=== PATIENT | female | born 1985 | race American Indian/Alaskan Native ===

== ENCOUNTER 2019-02-23 07:12 | Emergency (ER) | payer OTHER ==
[2019-02-23] MEDS ORDERED: NACL 0.9% 1000 ML 1,000 ML IV ONE ×3 (07:38→12:02)
[2019-02-23] MEDS ORDERED: MORPHINE IV ONE (07:38)
[2019-02-23] MEDS ORDERED: ZOFRAN IV ONE ×2 (07:38→10:55)
[2019-02-23 07:52] LABS: Bacteria,Urine 1+ /HPF (Negative); Bilirubin,Urine NEG (Negative); Blood,Urine LG (Negative); Color,Urine Yellow (Yellow); Mucus,Urine FEW /HPF; Urobilinogen,Urine < 2.0 mg/dL (<2.0)
[2019-02-23 07:58] LABS: Protein,Urine >500 mg/dL (Negative)
--- NOTE | 2019-02-23 08:17 | Emergency Department Report ---
ED Abdominal Pain HPI - General Chief Complaint: Abdominal Pain Stated Complaint: VOMITING Time Seen by Provider: 02/23/19 07:37 Source: patient Mode of arrival: Ambulatory Limitations: No Limitations - History of Present Illness Initial Comments: This is a 33-year-old female nontoxic, well nourished in appearance, no acute signs of distress presents to the ED with c/o of nausea and vomiting and abdominal pain 1 day. Patient describes vomiting as food content and yellow gastric acid. Patient describes abdominal pain as cramping and aching with l evel of 3/10 diffuse. Patient denies chest pain, short of breath, fever, chills, headache, stiff neck, numbness or tingling. Patient denies any diarrhea or constipation. Patient denies any recent travels. Patient denies any allergies or PMH. MD Complaint: abdominal pain -: days(s) Location: diffuse Radiation: none Migration to: no migration Severity: mild Severity scale (0 -10): 3 Quality: cramping, aching Consistency: constant Improves With: nothing Worsens With: nothing Associated Symptoms: nausea, vomiting. denies: diarrhea, fever, chills, constipation, dysuria, hematemesis, hematochezia, melena, hematuria, anorexia, syncope - Related Data Previous Rx's Medication Instructions Recorded Last Taken Type Ibuprofen [Motrin] 600 mg PO Q8H PRN #20 tablet 02/23/19 Unknown Rx Ondansetron [Zofran Odt] 4 mg PO Q8HR PRN #20 tab.rapdis 02/23/19 Unknown Rx Allergies Allergy/AdvReac Type Severity Reaction Status Date / Time No Known Allergies Allergy Unverified 02/23/19 07:15 ED Review of Systems ROS: Stated complaint: VOMITING Other details as noted in HPI Constitutional: denies: chills, fever Eyes: denies: eye pain, eye discharge, vision change ENT: denies: ear pain, throat pain Respiratory: denies: cough, shortness of breath, wheezing Cardiovascular: denies: chest pain, palpitations Endocrine: no symptoms reported Gastrointestinal: abdominal pain, nausea, vomiting. denies: diarrhea Genitourinary: denies: urgency, dysuria, discharge Musculoskeletal: denies: back pain, joint swelling, arthralgia Skin: denies: rash, lesions Neurological: denies: headache, weakness, paresthesias Psychiatric: denies: anxiety, depression Hematological/Lymphatic: denies: easy bleeding, easy bruising ED Past Medical Hx - Past Medical History Previous Medical History?: No - Surgical History Past Surgical History?: No - Social History Smoking Status: Never Smoker - Medications Home Medications: Home Medications Medication Instructions Recorded Confirmed Last Taken Type Ibuprofen [Motrin] 600 mg PO Q8H PRN #20 tablet 02/23/19 Unknown Rx Ondansetron [Zofran Odt] 4 mg PO Q8HR PRN #20 tab.rapdis 02/23/19 Unknown Rx ED Physical Exam - General Limitations: No Limitations General appearance: alert, in no apparent distress - Head Head exam: Present: atraumatic, normocephalic - Neck Neck exam: Present: normal inspection, full ROM. Absent: tenderness, meningismus, lymphadenopathy - Respiratory Respiratory exam: Present: normal lung sounds bilaterally. Absent: respiratory distress, wheezes, rales, rhonchi, stridor, chest wall tenderness, accessory muscle use, decreased breath sounds, prolonged expiratory - Cardiovascular Cardiovascular Exam: Present: regular rate, normal rhythm, tachycardia, normal heart sounds. Absent: bradycardia, systolic murmur, diastolic murmur, rubs, gallop - GI/Abdominal GI/Abdominal exam: Present: soft, tenderness (diffuse), normal bowel sounds. Absent: distended, guarding, rebound, rigid, diminished bowel sounds - Expanded GI/Abdominal Exam Expanded GI/Abdominal exam: Absent: psoas sign, Tamayo's sign, Rovsing's sign, tenderness at Mcburney's Point, ascites - Extremities Exam Extremities exam: Present: normal inspection, full ROM - Back Exam Back exam: Present: normal inspection, full ROM. Absent: tenderness, CVA tenderness (R), CVA tenderness (L), muscle spasm, paraspinal tenderness, vertebral tenderness, rash noted - Neurological Exam Neurological exam: Present: alert, oriented X3, normal gait - Psychiatric Psychiatric exam: Present: normal affect, normal mood - Skin Skin exam: Present: warm, dry, intact, normal color. Absent: rash ED Course Vital Signs 02/23/19 02/23/19 02/23/19 07:16 08:04 08:31 Temperature 98.3 F Pulse Rate 110 H Respiratory 16 18 18 Rate Blood Pressure Blood Pressure 154/105 [Right] O2 Sat by Pulse 100 98 Oximetry 02/23/19 02/23/19 02/23/19 08:34 11:37 11:42 Temperature 98.2 F Pulse Rate 103 H Respiratory 18 12 Rate Blood Pressure 148/91 Blood Pressure [Right] O2 Sat by Pulse 100 Oximetry 02/23/19 14:34 Temperature 98.4 F Pulse Rate 93 H Respiratory 16 Rate Blood Pressure Blood Pressure 149/96 [Right] O2 Sat by Pulse 100 Oximetry - Reevaluation(s) Reevaluation #1: 02/23/19 08:17 Patient is speaking in full sentences with no signs of distress noted. Reevaluation #2: 02/23/19 10:59 Patient is resting comfortably but still vomiting. I will give 4 mg of Zofran. Vital signs are stable currently. Reevaluation #3: 02/23/19 14:03 Patient's is currently at the bedside and has opened up to me that patient has been consuming alcohol on a daily basis. Last alcohol consumption was yesterday. I will start an IV banana bag in Will reevaluate patient. Reevaluation #4: 02/23/19 15:01 A by mouth challenge has been done with apple juice 3 with no nausea vomiting. Patient stated that symptoms of pain and nausea vomiting has currently subsided. - Consultations Consultation #1: 02/23/19 09:46 Patient has been consulted with Beth De La Cruz about patient history, physical exam, and labs and agrees to the ED plan of care. ED Medical Decision Making - Lab Data Result diagrams: 02/23/19 07:46 02/23/19 12:58 - Medical Decision Making This is a 33-year-old female that presents with abdominal pain and n/v. Patient is stable and was examined by me. Patient was consulted with Beth De La Cruz about patient history, results and agrees to discharge instructions wioth follow-up. Patient was given education on alcohol affecting liver and was instructed to get medical help as this does affect her liver. Negative signs of symptoms of appendicitis. Labs obtained. UA obtained. CT of abdomen obtained and dictated by the radiologist. Patient is notified of the report with no questions noted by the patient. Vital signs are stable prior to discharge. Patient received medical treatment in the ED which patient stated symptoms has resovled and subsided. Was instructed note to operate any machinery due to possible drowsiness and stated someone will drive the patient home. A by mouth challenge has been obtained and patient tolerated well with no nausea vomiting. Patient was also instructed to Follow-up with a primary care doctor in 3-5 days or if symptoms worsen and continue return to emergency room as soon as possible. At time of discharge, the patient does not seem toxic or ill in appearance. No acute signs of distress noted. Patient agrees to discharge treatment plan of care. No further questions noted by the patient. Critical care attestation.: If time is entered above; I have spent that time in minutes in the direct care of this critically ill patient, excluding procedure time. ED Disposition Clinical Impression: Nausea & vomiting Qualifiers: Vomiting type: unspecified Vomiting Intractability: non-intractable Qualified Code(s): R11.2 - Nausea with vomiting, unspecified Abdominal pain Qualifiers: Abdominal location: generalized Qualified Code(s): R10.84 - Generalized abdominal pain Disposition: TO HOME OR SELFCARE Is pt being admited?: No Does the pt Need Aspirin: No Condition: Stable Instructions: Abdominal Pain (ED), Acute Nausea and Vomiting (ED) Additional Instructions: Follow-up with a primary care doctor in 3-5 days or if symptoms worsen and continue return to emergency room as soon as possible. Prescriptions: Ibuprofen [Motrin] 600 mg PO Q8H PRN #20 tablet PRN Reason: Pain Ondansetron [Zofran Odt] 4 mg PO Q8HR PRN #20 tab.rapdis PRN Reason: Nausea Referrals: EDIL SANDS MD [Primary Care Provider] - 3-5 Days EVA BEYER MD [Referring] - 3-5 Days ASIYA CONCEPCION MD [Staff Physician] - 3-5 Days [facility] [place]] - 3-5 Days [facility] [Outside] - 3-5 Days Forms: Work/School Release Form(ED)
[2019-02-23 08:59] LABS: Basophils # (Auto) 0.1 K/mm3 (0.0-0.1); Basophils % (Auto) 1.5 % (0.0-1.8); Eosinophils % (Auto) 0.4 % (0.0-4.3); Hematocrit 41.4 % (30.3-42.9); Lymphocytes # (Auto) 1.3 K/mm3 (1.2-5.4); Lymphocytes % (Auto) 26.5 % (13.4-35.0); Mean Corpuscular HGB Conc 34 % (30-34); Mean Corpuscular Volume 94 fl (79-97); Monocytes # (Auto) 0.3 K/mm3 (0.0-0.8); Monocytes % (Auto) 6.4 % (0.0-7.3); Platelet Count 264 K/mm3 (140-440); Red Blood Count 4.39 M/mm3 (3.65-5.03); Red Cell Distribution Width 13.4 % (13.2-15.2)
[2019-02-23 09:27] LABS: Alanine Aminotransferase 67 units/L (7-56); Albumin 5.3 g/dL (3.9-5); BUN/Creatinine Ratio 13; Bilirubin,Direct 0.3 mg/dL (0-0.2); Blood Urea Nitrogen 10 mg/dL (7-17); Calcium 10.2 mg/dL (8.4-10.2); Hemolysis Index 20
--- NOTE | 2019-02-23 10:29 | Cat Scan Report ---
CT abdomen pelvis w con INDICATION / CLINICAL INFORMATION: Generalized abdominal pain. TECHNIQUE: The patient received 100 cc Omnipaque [address] scans at this location are performed using CT dose reduction for ALARA by means of automated exposure control. COMPARISON: None available. FINDINGS: ABDOMEN: The liver measures approximately 18 cm in length and demonstrates moderately severe generali zed decreased density compared to the spleen. No focal lesion is identified. The gallbladder is mildl y distended without wall thickening or gallstones. The bile ducts, pancreas, spleen, adrenal glands a nd kidneys are normal. There is generalized increase in the submucosal fat throughout the colon, more prominent in the right colon. No mucosal abnormality is seen. I see no evidence of bowel dilatation or free air. No adenopa thy is identified. The lung bases are clear. PELVIS: The distal ureters and urinary bladder are normal. The uterus and ovaries are normal in appea pilar. A normal appendix is identified and there is no evidence of diverticulitis. There is umbilical jewelry. I do not identify a hernia. No abnormal mass or fluid collection is seen. No osseous abnorm ality is identified. IMPRESSION: 1. Hepatomegaly with moderately severe diffuse fatty infiltration. 2. Prominent submucosal fat throughout the colon, more prominent in the right colon. Causes of chroni c colitis can have this appearance, however the findings are nonspecific and can be non-pathologic. 3. Mildly distended gallbladder without wall thickening or visible gallstones. Signer Name: Lc Aaron MD Signed: 02/23/2019 10:24 AM Workstation Name: [id number]
[2019-02-23] MEDS ORDERED: ZOFRAN ONE (10:58)
--- NOTE | 2019-02-23 12:26 | Ultrasound Report ---
ULTRASOUND ABDOMEN, COMPLETE INDICATION: abd pain with abnormal liver function test. COMPARISON: None available. FINDINGS: PANCREAS: No significant abnormality. ABDOMINAL AORTA: No significant abnormality. IVC: No significant abnormality.. LIVER: Moderate generalized increased echogenicity compared to the right renal cortex. No focal lesio n. GALLBLADDER: No significant abnormality. BILE DUCTS: No significant abnormality. Common bile duct measures 4 mm. KIDNEYS: Right: Small linear echogenic focus in the upper pole of the right kidney is of doubtful cli nical significance. I do not identify a renal calculus on the CT scan performed earlier today. Left: No significant abnormality SPLEEN: No significant abnormality. FREE FLUID: None. ADDITIONAL FINDINGS: None. IMPRESSION: 1. Moderate diffuse fatty infiltration of the liver. 2. No evidence of gallstones or other significant abnormality. Signer Name: Lc Aaron MD Signed: 02/23/2019 12:21 PM Workstation Name: [id number]
[2019-02-23] MEDS ORDERED: REGLAN ONE (13:32)
[2019-02-23] MEDS ORDERED: REGLAN IV ONE (13:32)
[2019-02-23 13:36] LABS: Alanine Aminotransferase 51 units/L (7-56); Albumin 4.4 g/dL (3.9-5); BUN/Creatinine Ratio 9; Blood Urea Nitrogen 6 mg/dL (7-17); Calcium 8.4 mg/dL (8.4-10.2); Hemolysis Index 0
[2019-02-23] MEDS ORDERED: K-DUR PO ONE (13:48)
[2019-02-23] MEDS ORDERED: VITAMIN B-1 100 MG, FOLVITE 1 MG, INFUVITE 10 ML in NACL 0.9% 1000 ML 1,000 ML IV ONE (14:02)
[2019-02-23 18:40] VITALS: BP 173/109
== END 2019-02-23 18:40 | disposition home or self-care (01) ==
LOC: ED 07:12
DX: R11.2 Nausea with vomiting, unspecified (principal); R10.84 Generalized abdominal pain; Z79.899 Other long term (current) drug therapy
CPT/HCPCS: 36415; 74177; 76700; 80048; 80053; 80076; 81001; 82805; 83690; 84703; 85025; 96361; 96365; 96366; 96375; 96376; 99284; J2270; J2405; J2765; J3411; J7030; Q9967

== ENCOUNTER 2021-10-05 20:56 | Emergency (ER) | payer OTHER ==
[2021-10-06 00:39] LABS: Hematocrit 36.4 % (30.3-42.9); Hemoglobin 12.5 gm/dl (10.1-14.3); Mean Corpuscular HGB Conc 34 % (30-34); Mean Corpuscular Volume 100 fl (79-97); Platelet Count 365 K/mm3 (140-440); Red Blood Count 3.63 M/mm3 (3.65-5.03); Red Cell Distribution Width 14.4 % (13.2-15.2)
[2021-10-06] MEDS ORDERED: SODIUM CHLORIDE 0.9% 1000 ML 1,000 ML IV ONE (00:39)
[2021-10-06] MEDS ORDERED: HYOSCYAMINE SUBL 0.125 MG TAB SL ONE (00:39)
[2021-10-06] MEDS ORDERED: diphenhydrAMINE 50 MG/ML VIAL IV STA (00:39)
[2021-10-06] MEDS ORDERED: ONDANSETRON 4 MG/2 ML INJ IV STA (00:39)
[2021-10-06 00:48] LABS: Alanine Aminotransferase 12 units/L (7-56); Albumin 5.3 g/dL (3.9-5); BUN/Creatinine Ratio 10; Blood Urea Nitrogen 11 mg/dL (7-17); Calcium 9.8 mg/dL (8.4-10.2); Hemolysis Index 101
--- NOTE | 2021-10-06 01:47 | Emergency Department Report ---
ED Abdominal Pain HPI - General Chief Complaint: Abdominal Pain Stated Complaint: ABDOMINAL PAIN/VOMITING Time Seen by Provider: 10/06/21 00:38 Source: patient Mode of arrival: Ambulatory Limitations: No Limitations - History of Present Illness Initial Comments: 36-year-old F [place] female that emerge department complaining of upper abdominal pain radiating throughout the rest of her abdomen that started around 3 PM today of an unknown etiology. Symptoms were associated with nausea and and vomiting but no diarrhea. Reports no hemoptysis or hematemesis hematochezia, no fever, chills, sweats. No chest pain or palpitation. MD Complaint: abdominal pain Location: diffuse Quality: aching, dull Consistency: constant Improves With: nothing Worsens With: nothing Associated Symptoms: denies other symptoms - Related Data Previous Rx's Medication Instructions Recorded Last Taken Type Ibuprofen [Motrin] 600 mg PO Q8H PRN #20 tablet 02/23/19 Unknown Rx Clarithromycin [Biaxin] 500 mg PO BID #20 tab 10/06/21 Unknown Rx Esomeprazole Magnesium [NexIUM] 40 mg PO QDAY #30 10/06/21 Unknown Rx RX: Amoxicillin [Trimox CAP] 500 mg PO Q8H #30 capsule 10/06/21 Unknown Rx RX: Ondansetron [Zofran ODT TAB] 4 mg PO Q8HR PRN #20 tab.rapdis 10/06/21 Unknown Rx Allergies Allergy/AdvReac Type Severity Reaction Status Date / Time No Known Allergies Allergy Unverified 02/23/19 07:15 ED Review of Systems ROS: Stated complaint: ABDOMINAL PAIN/VOMITING Other details as noted in HPI ED Past Medical Hx - Past Medical History Previous Medical History?: No - Surgical History Past Surgical History?: No - Social History Smoking Status: Current Every Day Smoker Substance Use Type: Marijuana - Medications Home Medications: Home Medications Medication Instructions Recorded Confirmed Last Taken Type Ibuprofen [Motrin] 600 mg PO Q8H PRN #20 tablet 02/23/19 Unknown Rx Clarithromycin [Biaxin] 500 mg PO BID #20 tab 10/06/21 Unknown Rx Esomeprazole Magnesium [NexIUM] 40 mg PO QDAY #30 10/06/21 Unknown Rx RX: Amoxicillin [Trimox CAP] 500 mg PO Q8H #30 capsule 10/06/21 Unknown Rx RX: Ondansetron [Zofran ODT TAB] 4 mg PO Q8HR PRN #20 tab.rapdis 10/06/21 Unknown Rx ED Physical Exam - General Limitations: No Limitations ED Course Vital Signs 10/05/21 10/06/21 21:25 06:26 Temperature 98.6 F Pulse Rate 128 H 88 Respiratory 18 20 Rate Blood Pressure 165/101 Blood Pressure 118/76 [Left] O2 Sat by Pulse 96 100 Oximetry ED Medical Decision Making - Lab Data Result diagrams: 10/06/21 00:13 10/06/21 00:13 - Radiology Data Radiology results: report reviewed [facility] [address] [place] [address] Cat Scan Report Signed Patient: AVIVA WILD MR#: [id number] : 1985 Acct:[id number] Age/Sex: 36 / F ADM Date: 10/05/21 Loc: ED Attending Dr: Ordering Physician: BELA BLOOM Date of Service: 10/06/21 Procedure(s): CT abdomen pelvis w con Accession Number(s): [id number] cc: BELA BLOOM CT ABDOMEN AND PELVIS WITH CONTRAST INDICATION / CLINICAL INFORMATION: abdominal pain. TECHNIQUE: Axial CT images were obtained through the abdomen and pelvis after Omnipaque 300, 100 cc IV contrast. All [address] scans at this location are performed using CT dose reduction for ALARA by means of automated exposure control. COMPARISON: 02/23/2019. FINDINGS: LOWER CHEST: No significant abnormality. LIVER: Diffuse fatty infiltration. GALLBLADDER: No significant abnormality. BILE DUCTS: No significant abnormality. PANCREAS: No significant abnormality. SPLEEN: No significant abnormality. ADRENALS: No significant abnormality. RIGHT KIDNEY / URETER: No significant abnormality. LEFT KIDNEY / URETER: No significant abnormality. STOMACH / SMALL BOWEL: The stomach is distended with fluid. More localized circumferential thickening distally. No small bowel dilatation. COLON: Prominent submucosal fat remains at the colon diffusely. APPENDIX: No significant abnormality. PERITONEUM: No free fluid. No free air. No fluid collection. LYMPH NODES: No significant adenopathy. VASCULAR STRUCTURES: No significant abnormality. URINARY BLADDER: No significant abnormality. REPRODUCTIVE ORGANS: No significant abnormality. ADDITIONAL FINDINGS: None. SKELETAL SYSTEM: No significant abnormality. IMPRESSION: 1. Diffuse fatty liver. 2. Stomach distended with fluid with circumferential thickening distally. Findings could represent peptic disease/gastritis in the appropriate clinical setting. 3. Prominent submucosal fat greatest at the right and transverse colons is s imilar to the previous exam. Signer Name: Adriano Lopez MD Signed: 10/06/2021 5:24 AM Workstation Name: [id number] Transcribed By: VICENTE Dictated By: Adriano Lopez MD Electronically Authenticated By: Adriano Lopez MD Signed Date/Time: 10/06/21523 DD/ 6 TD/TT: Print Cancel - Medical Decision Making This patient presents with abdominal pain of unclear etiology. A CT scan was performed to evaluate for potential causes of the abdominal pain, however, neither the clinical exam nor the CT has identified an emergent etiology for the abdominal pain. Specifically, given the benign exam, the laboratory studies, and unremarkable CT, I have a very low suspicion for appendicitis, ischemic bowel, bowel perforation, or any other life threatening disease. I have discussed with the patient the level of uncertainty with undifferentiated abdominal pain and clearly explained the need to follow-up as noted on the osmar valles instructions, or return to the Emergency Department immediately if the pain worsens, develops fever, persistent and uncontrollable vomiting, or for any new symptoms or concerns. Critical care attestation.: If time is entered above; I have spent that time in minutes in the direct care of this critically ill patient, excluding procedure time. ED Disposition Clinical Impression: Abdominal pain, Gastritis Disposition: HOME / SELF CARE / HOMELESS Condition: Stable Instructions: Peptic Ulcer, Gastrin Test, Abdominal Pain, Adult, CEA Test, Jeremiah ritis, Adult, Upper Endoscopy, Adult, Abdominal Pain (ED) Prescriptions: Clarithromycin [Biaxin] 500 mg PO BID #20 tab Esomeprazole Magnesium [NexIUM] 40 mg PO QDAY #30 RX: Amoxicillin [Trimox CAP] 500 mg PO Q8H #30 capsule RX: Ondansetron [Zofran ODT TAB] 4 mg PO Q8HR PRN #20 tab.rapdis PRN Reason: Nausea Referrals: EDIL SANDS MD [Primary Care Provider] - 3-5 Days
[2021-10-06 05:14] LABS: Basophils % (Manual) 0 % (0.0-1.8); Eosinophils % (Manual) 0 % (0.0-4.3); Total Cells Counted 100
[2021-10-06 05:15] LABS: Anisocytosis 1+; Platelet Estimate Consistent w Auto
--- NOTE | 2021-10-06 05:28 | Cat Scan Report ---
CT ABDOMEN AND PELVIS WITH CONTRAST INDICATION / CLINICAL INFORMATION: abdominal pain. TECHNIQUE: Axial CT images were obtained through the abdomen and pelvis after Omnipaque 300, 100 cc I V contrast. All CT scans at this location are performed using CT dose reduction for ALARA by means o f automated exposure control. COMPARISON: 02/23/2019. FINDINGS: LOWER CHEST: No significant abnormality. LIVER: Diffuse fatty infiltration. GALLBLADDER: No significant abnormality. BILE DUCTS: No significant abnormality. PANCREAS: No significant abnormality. SPLEEN: No significant abnormality. ADRENALS: No significant abnormality. RIGHT KIDNEY / URETER: No significant abnormality. LEFT KIDNEY / URETER: No significant abnormality. STOMACH / SMALL BOWEL: The stomach is distended with fluid. More localized circumferential thickening distally. No small bowel dilatation. COLON: Prominent submucosal fat remains at the colon diffusely. APPENDIX: No significant abnormality. PERITONEUM: No free fluid. No free air. No fluid collection. LYMPH NODES: No significant adenopathy. VASCULAR STRUCTURES: No significant abnormality. URINARY BLADDER: No significant abnormality. REPRODUCTIVE ORGANS: No significant abnormality. ADDITIONAL FINDINGS: None. SKELETAL SYSTEM: No significant abnormality. IMPRESSION: 1. Diffuse fatty liver. 2. Stomach distended with fluid with circumferential thickening distally. Findings could represent pe ptic disease/gastritis in the appropriate clinical setting. 3. Prominent submucosal fat greatest at the right and transverse colons is similar to the previous ex am. Signer Name: Adriano Lopez MD Signed: 10/06/2021 5:24 AM Workstation Name: [id number]
[2021-10-06] MEDS ORDERED: FAMOTIDINE 20 MG/2 ML INJ IV ONE (06:03)
[2021-10-06 06:27] VITALS: BP 118/76
== END 2021-10-06 07:09 | disposition home or self-care (01) ==
LOC: ED 20:56
DX: R10.9 Unspecified abdominal pain (principal); K29.70 Gastritis, unspecified, without bleeding; F17.200 Nicotine dependence, unspecified, uncomplicated; F12.90 Cannabis use, unspecified, uncomplicated
CPT/HCPCS: 36415; 74177; 80053; 83690; 84703; 85007; 85025; 96361; 96374; 96375; 99284; J1200; J2405; J3490; J7030; Q9967; Q0162

== ENCOUNTER 2022-04-08 19:12 | Inpatient (IN) | payer OTHER ==
[2022-04-09] MEDS ORDERED: ONDANSETRON 4 MG/2 ML INJ IV ONE (01:58)
[2022-04-09] MEDS ORDERED: SODIUM CHLORIDE 0.9% 1000 ML 1,000 ML IV ONE ×2 (01:58→03:34)
[2022-04-09] MEDS ORDERED: MORPHINE 4 MG/1 ML INJ IV ONE (02:09)
--- NOTE | 2022-04-09 02:34 | Emergency Department Report ---
<KRISTYN HORAN - Last Filed: 04/09/22 02:31> ED General Adult HPI - General Chief complaint: Weakness Stated complaint: MALAISE Time Seen by Provider: 04/09/22 01:59 Source: patient, EMS Mode of arrival: Stretcher Limitations: No Limitations - History of Present Illness Initial comments: Patient 36-year-old female with history of pancreatitis who presents for nausea vomiting abdominal pain x3 days. Last EtOH 2 days ago. Patient denies withdrawals. States this is typical pancreatitis flare. Last p.o. intake this evening. Patient denies fevers or chills. Pain is rated at 5/10. Pain is exacerbated by p.o. intake. Pain is relieved by nothing tried. Severity scale (0 -10): 7 - Related Data Previous Rx's Medication Instructions Recorded Last Taken Type Ibuprofen [Motrin] 600 mg PO Q8H PRN #20 tablet 02/23/19 Unknown Rx Amoxicillin [Trimox CAP] 500 mg PO Q8H #30 capsule 10/06/21 Unknown Rx Clarithromycin [Biaxin] 500 mg PO BID #20 tab 10/06/21 Unknown Rx Esomeprazole Magnesium [NexIUM] 40 mg PO QDAY #30 10/06/21 Unknown Rx Ondansetron [Zofran ODT TAB] 4 mg PO Q8HR PRN #20 tab.rapdis 10/06/21 Unknown Rx Allergies Allergy/AdvReac Type Severity Reaction Status Date / Time No Known Allergies Allergy Unverified 02/23/19 07:15 ED Review of Systems Constitutional: malaise. denies: chills, fever Eyes: denies: eye pain, eye discharge, vision change ENT: denies: ear pain, throat pain Respiratory: denies: cough, shortness of breath, wheezing Cardiovascular: denies: chest pain, palpitations Endocrine: no symptoms reported Gastrointestinal: abdominal pain, nausea, vomiting. denies: diarrhea, con stipation, melena Genitourinary: denies: urgency, dysuria, discharge Musculoskeletal: denies: back pain, joint swelling, arthralgia Skin: denies: rash, lesions Neurological: denies: headache, weakness, paresthesias, vertigo Psychiatric: denies: anxiety, depression Hematological/Lymphatic: denies: easy bleeding, easy bruising ED Past Medical Hx - Social History Smoking Status: Current Every Day Smoker Substance Use Type: Marijuana - Medications Home Medications: Home Medications Medication Instructions Recorded Confirmed Last Taken Type Ibuprofen [Motrin] 600 mg PO Q8H PRN #20 tablet 02/23/19 Unknown Rx Amoxicillin [Trimox CAP] 500 mg PO Q8H #30 capsule 10/06/21 Unknown Rx Clarithromycin [Biaxin] 500 mg PO BID #20 tab 10/06/21 Unknown Rx Esomeprazole Magnesium [NexIUM] 40 mg PO QDAY #30 10/06/21 Unknown Rx Ondansetron [Zofran ODT TAB] 4 mg PO Q8HR PRN #20 tab.rapdis 10/06/21 Unknown Rx ED Physical Exam - General Limitations: No Limitations General appearance: alert, in no apparent distress - Head Head exam: Present: normocephalic, normal inspection - Eye Eye exam: Present: normal appearance, PERRL, EOMI Pupils: Present: normal accommodation - ENT ENT exam: Present: normal orophraynx, mucous membranes moist - Neck Neck exam: Present: normal inspection, full ROM. Absent: tenderness, lymphadenopathy, thyromegaly - Respiratory Respiratory exam: Present: normal lung sounds bilaterally. Absent: respiratory distress, wheezes, stridor, chest wall tenderness - Cardiovascular Cardiovascular Exam: Present: regular rate, normal rhythm, normal heart sounds. Absent: systolic murmur, diastolic murmur, rubs, gallop - GI/Abdominal GI/Abdominal exam: Present: soft, tenderness (Left upper quadrant), normal bowel sounds. Absent: distended, guarding, rebound, rigid, bruit, hernia - Rectal Rectal exam: Present: deferred - Extremities Exam Extremities exam: Present: normal inspection, full ROM, normal capillary refill. Absent: tenderness - Back Exam Back exam: Present: normal inspection, full ROM. Absent: CVA tenderness (R), CVA tenderness (L), rash noted - Neurological Exam Neurological exam: Present: alert, oriented X3, CN II-XII intact, normal gait - Expanded Neurological Exam Expanded Patient oriented to: Present: person, place, time Speech: Present: fluid speech Cranial nerves: EOM's Intact: Normal, Gag Reflex: Normal, Tongue Deviation: Normal, Nystagmus: Normal, Facial Sensation: Normal Motor strength exam: RUE: 5, LUE: 5, RLE: 5, LLE: 5 Best Eye Response (Hair): (4) open spontaneously Best Motor Response ([place]): (6) obeys commands Best Verbal Response ([place]): (5) oriented Hair Total: 15 - Psychiatric Psychiatric exam: Present: normal affect, normal mood - Skin Skin exam: Present: warm, dry, intact, normal color. Absent: rash ED Disposition Clinical Impression: Acute abdominal pain, Acute renal insufficiency, Metabolic acidosis Disposition: ADMITTED INPATIENT Condition: Serious <JOSE KNOWLES - Last Filed: 04/09/22 05:00> ED Review of Systems ROS: Stated complaint: MALAISE Other details as noted in HPI ED Course Vital Signs 04/08/22 04/09/22 04/09/22 19:31 04:33 04:46 Temperature 98.9 F Pulse Rate 119 H 120 H 129 H Respiratory 16 24 24 Rate Blood Pressure 146/96 Blood Pressure 152/102 [Right] O2 Sat by Pulse 97 100 99 Oximetry - Reevaluation(s) Reevaluation #1: 04/09/22 04:57 Care assumed from our nurse practitioner colleagues. The patient is a 36-year-old female with a history of possible gastritis, and alcoholism. She has been admitted to this hospital in the past for metabolic acidosis, secondary to nausea and vomiting, secondary to dehydration, and alcohol withdrawal. 2 CT scans in the past did not demonstrate surgical findings. Right upper quadrant ultrasound has not demonstrated surgical findings. Her laboratory studies today are remarkable for metabolic acidosis, as well as renal insufficiency. Patient states that she does not consume avoid alcohol, methanol, or industrial alcohol. Placed patient on cardiac/vascular sonographer, and obtain EKG. Continue vigorous IV fluid resuscitation, antiemetics, and sodium bicarbonate. Administer Protonix. I doubt acute infectious pathology. This is most likely dehydration, with metabolic derangement, secondary to the aforementioned. Patient is agreeable to admission hospitalization. She is not, suicidal or or homicidal at this time, and does not meet criteria for 1013 hold or involuntary confinement. She is admitted to the hospital physician, Dr. Ekaterina Thorne ED Medical Decision Making - Lab Data Result diagrams: 04/09/22 02:07 04/09/22 02:07 Vital Signs 04/08/22 04/09/22 04/09/22 19:31 04:33 04:46 Temperature 98.9 F Pulse Rate 119 H 120 H 129 H Respiratory 16 24 24 Rate Blood Pressure 146/96 Blood Pressure 152/102 [Right] O2 Sat by Pulse 97 100 99 Oximetry Lab Results 04/09/22 04/09/22 04/09/22 Range/Units 02:07 02:07 Unknown WBC 23.0 H (4.5-11.0) K/mm3 RBC 3.65 (3.65-5.03) M/mm3 Hgb 11.7 (10.1-14.3) gm/dl Hct 36.9 (30.3-42.9) % MCV 101 H (79-97) fl MCH 32 (28-32) pg MCHC 32 (30-34) % RDW 14.5 (13.2-15.2) % Plt Count 385 (140-440) K/mm3 Add Manual Diff Complete Total Counted 100 Seg Neutrophils % Individualized Education Plan Aide Seg Neuts % (Manual) 99.0 H (40.0-70.0) % Band Neutrophils % 0 % Lymphocytes % (Manual) 1.0 L (13.4-35.0) % Reactive Lymphs % (Man) 0 % Monocytes % (Manual) 0 (0.0-7.3) % Eosinophils % (Manual) 0 (0.0-4.3) % Basophils % (Manual) 0 (0.0-1.8) % Metamyelocytes % 0 % Myelocytes % 0 % Promyelocytes % 0 % Blast Cells % 0 % Nucleated RBC % Not Reportable Seg Neutrophils # Man 22.8 H (1.8-7.7) K/mm3 Band Neutrophils # 0.0 K/mm3 Lymphocytes # (Manual) 0.2 L (1.2-5.4) K/mm3 Abs React Lymphs (Man) 0.0 K/mm3 Monocytes # (Manual) 0.0 (0.0-0.8) K/mm3 Eosinophils # (Manual) 0.0 (0.0-0.4) K/mm3 Basophils # (Manual) 0.0 (0.0-0.1) K/mm3 Metamyelocytes # 0.0 K/mm3 Myelocytes # 0.0 K/mm3 Promyelocytes # 0.0 K/mm3 Blast Cells # 0.0 K/mm3 WBC Morphology Not Reportable Hypersegmented Neuts Not Reportable Hyposegmented Neuts Not Reportable Hypogranular Neuts Not Reportable Smudge Cells Not Reportable Toxic Granulation Not Reportable Toxic Vacuolation Not Reportable Dohle Bodies Not Reportable Pelger-Huet Anomaly Not Reportable Rashi Rods Not Reportable Platelet Estimate Consistent w auto Clumped Platelets Not Reportable Plt Clumps, EDTA Not Reportable Large Platelets Not Reportable Giant Platelets Not Reportable Platelet Satelliting Not Reportable Plt Morphology Comment Not Reportable RBC Morphology Not Reportable Dimorphic RBCs Not Reportable Polychromasia Not Reportable Hypochromasia Not Reportable Poikilocytosis Not Reportable Anisocytosis Not Reportable Microcytosis Not Reportable Macrocytosis Not Reportable Spherocytes Not Reportable Pappenheimer Bodies Not Reportable Sickle Cells Not Reportable Target Cells Not Reportable Tear Drop Cells Not Reportable Ovalocytes Not Reportable Helmet Cells Not Reportable Louise-Trosky Bodies Not Reportable [place] Rings Not Reportable [place] Cells Not Reportable Bite Cells Not Reportable Crenated Cell Not Reportable Elliptocytes Not Reportable Acanthocytes (Spur) Not Reportable Rouleaux Not Reportable Hemoglobin C Crystals Not Reportable Schistocytes Not Reportable Malaria parasites Not Reportable Jacques Bodies Not Reportable Hem Pathologist Commnt No Sodium 145 (137-145) mmol/L Potassium 4.6 (3.6-5.0) mmol/L Chloride 87.1 L (98-107) mmol/L Carbon Dioxide < 2.0 L* (22-30) mmol/L Anion Gap 61 mmol/L BUN 14 (7-17) mg/dL Creatinine 2.0 H (0.6-1.2) mg/dL Estimated GFR 34 ml/min BUN/Creatinine Ratio 7 % Glucose 125 H (65-100) mg/dL Calcium 9.8 (8.4-10.2) mg/dL Total Bilirubin 0.50 (0.1-1.2) mg/dL AST 53 H (5-40) units/L ALT 26 (7-56) units/L Alkaline Phosphatase 122 (35-129) units/L Total Protein 9.2 H (6.3-8.2) g/dL Albumin 5.6 H (3.9-5) g/dL Albumin/Globulin Ratio 1.6 % Lipase 77 H (13-60) units/L Urine Color Colorless (Yellow) Urine Turbidity Clear (Clear) Specific [place] (Man) 1.025 (1.003-1.030) Ur Protein (Man) 2+ (Negative) mg/dL Ur Ketones (Man) 4+ (Negative) Ur Nitrite (Man) Negative (Negative) Urine Bilirubin (Man) Negative (Negative) Leukocyte Esterase (Man) Negative (Negative) Urine WBC (Auto) 1.0 (0.0-6.0) /HPF Urine RBC (Auto) 1.0 (0.0-6.0) /HPF U Epithel Cells (Auto) 1.0 (0-13.0) /HPF Urine RBC (Manual) Trace (Negative) Urine Mucus Few /HPF Urine HCG, Qual (Negative) 04/09/22 Range/Units Unknown WBC (4.5-11.0) K/mm3 RBC (3.65-5.03) M/mm3 Hgb (10.1-14.3) gm/dl Hct (30.3-42.9) % MCV (79-97) fl MCH (28-32) pg MCHC (30-34) % RDW (13.2-15.2) % Plt Count (140-440) K/mm3 Add Manual Diff Total Counted Seg Neutrophils % Seg Neuts % (Manual) (40.0-70.0) % Band Neutrophils % % Lymphocytes % (Manual) (13.4-35.0) % Reactive Lymphs % (Man) % Monocytes % (Manual) (0.0-7.3) % Eosinophils % (Manual) (0.0-4.3) % Basophils % (Manual) (0.0-1.8) % Metamyelocytes % % Myelocytes % % Promyelocytes % % Blast Cells % % Nucleated RBC % Seg Neutrophils # Man (1.8-7.7) K/mm3 Band Neutrophils # K/mm3 Lymphocytes # (Manual) (1.2-5.4) K/mm3 Abs React Lymphs (Man) K/mm3 Monocytes # (Manual) (0.0-0.8) K/mm3 Eosinophils # (Manual) (0.0-0.4) K/mm3 Basophils # (Manual) (0.0-0.1) K/mm3 Metamyelocytes # K/mm3 Myelocytes # K/mm3 Promyelocytes # K/mm3 Blast Cells # K/mm3 WBC Morphology Hypersegmented Neuts Hyposegmented Neuts Hypogranular Neuts Smudge Cells Toxic Granulation Toxic Vacuolation Dohle Bodies Pelger-Huet Anomaly Rashi Rods Platelet Estimate Clumped Platelets Plt Clumps, EDTA Large Platelets Giant Platelets Platelet Satelliting Plt Morphology Comment RBC Morphology Dimorphic RBCs Polychromasia Hypochromasia Poikilocytosis Anisocytosis Microcytosis Macrocytosis Spherocytes Pappenheimer Bodies Sickle Cells Target Cells Tear Drop Cells Ovalocytes Helmet Cells Louise-Trosky Bodies [place] Rings [place] Cells Bite Cells Crenated Cell Elliptocytes Acanthocytes (Spur) Rouleaux Hemoglobin C Crystals Schistocytes Malaria parasites Jacques Bodies Hem Pathologist Commnt Sodium (137-145) mmol/L Potassium (3.6-5.0) mmol/L Chloride (98-107) mmol/L Carbon Dioxide (22-30) mmol/L Anion Gap mmol/L BUN (7-17) mg/dL Creatinine (0.6-1.2) mg/dL Estimated GFR ml/min BUN/Creatinine Ratio % Glucose (65-100) mg/dL Calcium (8.4-10.2) mg/dL Total Bilirubin (0.1-1.2) mg/dL AST (5-40) units/L ALT (7-56) units/L Alkaline Phosphatase (35-129) units/L Total Protein (6.3-8.2) g/dL Albumin (3.9-5) g/dL Albumin/Globulin Ratio % Lipase (13-60) units/L Urine Color (Yellow) Urine Turbidity (Clear) Specific [place] (Man) (1.003-1.030) Ur Protein (Man) (Negative) mg/dL Ur Ketones (Man) (Negative) Ur Nitrite (Man) (Negative) Urine Bilirubin (Man) (Negative) Leukocyte Esterase (Man) (Negative) Urine WBC (Auto) (0.0-6.0) /HPF Urine RBC (Auto) (0.0-6.0) /HPF U Epithel Cells (Auto) (0-13.0) /HPF Urine RBC (Manual) (Negative) Urine Mucus /HPF Urine HCG, Qual Negative (Negative) - Radiology Data Radiology results: pending, report reviewed, image reviewed ULTRASOUND ABDOMEN, COMPLETE INDICATION: abd pain with abnormal liver function test. COMPARISON: None available. FINDINGS: PANCREAS: No significant abnormality. ABDOMINAL AORTA: No significant abnormality. IVC: No significant abnormality.. LIVER: Moderate generalized increased echogenicity compared to the right renal cortex. No focal lesion. GALLBLADDER: No significant abnormality. BILE DUCTS: No significant abnormality. Common bile duct measures 4 mm. KIDNEYS: Right: Small linear echogenic focus in the upper pole of the right kidney is of doubtful clinical significance. I do not identify a renal calculus on the CT scan performed earlier today. Left: No significant abnormality SPLEEN: No significant abnormality. FREE FLUID: None. ADDITIONAL FINDINGS: None. IMPRESSION: 1. Moderate diffuse fatty infiltration of the liver. 2. No evidence of gallstones or other significant abnormality. Signer Name: Lc Aaron MD Signed: 02/23/2019 11:21 AM Workstation Name: [id number] CT abdomen pelvis w con INDICATION / CLINICAL INFORMATION: Generalized abdominal pain. TECHNIQUE: The patient received 100 cc Omnipaque [address] scans at this location are performed using CT dose reduction for ALARA by means of automated exposure control. COMPARISON: None available. FINDINGS: ABDOMEN: The liver measures approximately 18 cm in length and demonstrates moderately severe generalized decreased density compared to the spleen. No focal lesion is identified. The gallbladder is mildly distended without wall thickening or gallstones. The bile ducts, pancreas, spleen, adrenal glands and kidneys are normal. There is generalized increase in the submucosal fat throughout the colon, more prominent in the right colon. No mucosal abnormality is seen. I see no evidence of bowel dilatation or free air. No adenopathy is identified. The lung bases are clear. PELVIS: The distal ureters and urinary bladder are normal. The uterus and ovaries are normal in appearance. A normal appendix is identified and there is no evidence of diverticulitis. There is umbilical jewelry. I do not identify a hernia. No abnormal mass or fluid collection is seen. No osseous abnormality is identified. IMPRESSION: 1. Hepatomegaly with moderately severe diffuse fatty infiltration. 2. Prominent submucosal fat throughout the colon, more prominent in the right colon. Causes of chronic colitis can have this appearance, however the findings are nonspecific and can be non-pathologic. 3. Mildly distended gallbladder without wall thickening or visible gallstones. Signer Name: Lc Aaron MD Signed: 02/23/2019 9:24 AM Workstation Name: [id number] COMPARISON: 02/23/2019. FINDINGS: LOWER CHEST: No significant abnormality. LIVER: Diffuse fatty infiltration. GALLBLADDER: No significant abnormality. BILE DUCTS: No significant abnormality. PANCREAS: No significant abnormality. SPLEEN: No significant abnormality. ADRENALS: No significant abnormality. RIGHT KIDNEY / URETER: No significant abnormality. LEFT KIDNEY / URETER: No significant abnormality. STOMACH / SMALL BOWEL: The stomach is distended with fluid. More localized circumferential thickening distally. No small bowel dilatation. COLON: Prominent submucosal fat remains at the colon diffusely. APPENDIX: No significant abnormality. PERITONEUM: No free fluid. No free air. No fluid collection. LYMPH NODES: No significant adenopathy. VASCULAR STRUCTURES: No significant abnormality. URINARY BLADDER: No significant abnormality. REPRODUCTIVE ORGANS: No significant abnormality. ADDITIONAL FINDINGS: None. SKELETAL SYSTEM: No significant abnormality. IMPRESSION: 1. Diffuse fatty liver. 2. Stomach distended with fluid with circumferential thickening distally. Findings could represent peptic disease/gastritis in the appropriate clinical setting. 3. Prominent submucosal fat greatest at the right and transverse colons is similar to the previous exam. Signer Name: Adriano Lopez MD Signed: 10/06/2021 4:24 AM Workstation Name: [id number] Critical Care Time: Yes Critical care time in (mins) excluding proc time.: 35 Critical care attestation.: If time is entered above; I have spent that time in minutes in the direct care of this critically ill patient, excluding procedure time. ED Disposition Is pt being admited?: Yes Does the pt Need Aspirin: No
[2022-04-09 02:59] LABS: Hematocrit 36.9 % (30.3-42.9); Hemoglobin 11.7 gm/dl (10.1-14.3); Mean Corpuscular HGB Conc 32 % (30-34); Mean Corpuscular Volume 101 fl (79-97); Platelet Count 385 K/mm3 (140-440); Red Blood Count 3.65 M/mm3 (3.65-5.03); Red Cell Distribution Width 14.5 % (13.2-15.2)
[2022-04-09 03:10] LABS: Alanine Aminotransferase 26 units/L (7-56); Albumin 5.6 g/dL (3.9-5); BUN/Creatinine Ratio 7; Blood Urea Nitrogen 14 mg/dL (7-17); Calcium 9.8 mg/dL (8.4-10.2); Hemolysis Index 57
[2022-04-09] MEDS ORDERED: PIPERACIL/TAZOBACTA 4.5/NS 100 4.5 GM/100 ML VIAL IV ONE (03:33)
[2022-04-09] MEDS ORDERED: diphenhydrAMINE 50 MG/ML VIAL IV ONE (03:42)
[2022-04-09] MEDS ORDERED: METOCLOPRAMIDE 10 MG/2 ML INJ IV ONE (03:42)
[2022-04-09 03:52] LABS: Basophils % (Manual) 0 % (0.0-1.8); Eosinophils % (Manual) 0 % (0.0-4.3); Monocytes % (Manual) 0 % (0.0-7.3); Platelet Estimate Consistent w Auto; Total Cells Counted 100
[2022-04-09] MEDS ORDERED: LORazepam 2 MG/ML VIAL IV PRN ×3 (04:06)
[2022-04-09] MEDS ORDERED: chlordiazePOXIDE 25 MG CAP PO PRN (04:06)
[2022-04-09] MEDS ORDERED: SODIUM BICARB 8.4% 50 MEQ/50 ML SYRINGE IV ONE ×2 (04:06→06:11)
[2022-04-09] MEDS ORDERED: PANTOPRAZOLE 40 MG INJ IV ONE (04:10)
[2022-04-09] MEDS ORDERED: MORPHINE 4 MG/1 ML INJ IV PRN (04:30)
[2022-04-09] MEDS ORDERED: ACETAMINOPHEN 325 MG TAB PO PRN (04:30)
--- NOTE | 2022-04-09 04:39 | History and Physical Report ---
History of Present Illness Date of examination: 04/09/22 Date of admission: 04/09/2022 Chief complaint: Nausea and Vomiting Abdominal pain History of present illness: 36-year-old -N[place]alese female with known history of pancreatitis, history of alcohol abuse presenting to the emergency room today complaining of nausea and vomiting. Patient has also had associated abdominal pain. Symptoms have been ongoing for the past 3 days. Patient denies any fever or chills, denies any chest pain, denies any shortness of breath, no headache or dizziness and no diaphoresis. Patient admits that she drinks alcohol almost on a daily basis but she has not had any alcohol intake in about 2 days. She denies any withdrawal symptoms. Abdominal pain is more in the epigastric region. She denies any hematemesis, denies any hematochezia or bright red blood per rectum. Patient states she has had similar episodes in the past. Work-up in the emergency room today, lab reveals leukocytosis of 23, creatinine of 2.0, CO2 of less than 2, lactic acid of 3.7. Urinalysis reveals ketones of 4+. CT of the abdomen and pelvis reveals no acute findings. Patient being admitted for severe metabolic acidosis, ELISHA and abdominal pain. Past History Past Medical History: other (Pancreatitis) Past Surgical History: No surgical history Social history: smoking (Current daily smoker), alcohol abuse (Drinks alcohol daily) Family history: no significant family history Medications and Allergies Allergies Allergy/AdvReac Type Severity Reaction Status Date / Time No Known Allergies Allergy Unverified 02/23/19 07:15 Home Medications Medication Instructions Recorded Confirmed Last Taken Type Ibuprofen [Motrin] 600 mg PO Q8H PRN #20 tablet 02/23/19 Unknown Rx Amoxicillin [Trimox CAP] 500 mg PO Q8H #30 capsule 10/06/21 Unknown Rx Clarithromycin [Biaxin] 500 mg PO BID #20 tab 10/06/21 Unknown Rx Esomeprazole Magnesium [NexIUM] 40 mg PO QDAY #30 10/06/21 Unknown Rx Ondansetron [Zofran ODT TAB] 4 mg PO Q8HR PRN #20 tab.rapdis 10/06/21 Unknown Rx Active Meds: Active Medications Chlordiazepoxide HCl (Chlordiazepoxide 25 Mg Cap) 50 mg PO Q1HR PRN PRN Reason: CIWA-Ar 8-15 Dextrose/Sodium Chloride (D5/0.45ns) 1,000 mls @ 150 mls/hr IV DIRECT TOREY Lorazepam (Lorazepam 2 Mg/Ml Vial) 2 mg IV Q1HR PRN PRN Reason: CIWA-Ar 8-15 Lorazepam (Lorazepam 2 Mg/Ml Vial) 4 mg IV Q1HR PRN PRN Reason: CIWA-Ar 16-25 Lorazepam (Lorazepam 2 Mg/Ml Vial) 4 mg IV Q15MIN PRN PRN Reason: CIWA-Ar >25 Review of Systems Constitutional: chills, no fever Ears, nose, mouth and throat: no nasal congestion, no sore throat Cardiovascular: no chest pain, no palpitations Respiratory: no cough, no shortness of breath Gastrointestinal: abdominal pain, nausea, vomiting, no diarrhea Genitourinary Female: no pelvic pain, no flank pain, no dysuria, no hematuria Musculoskeletal: no neck pain, no low back pain Integumentary: no rash, no pruritis Neurological: no headaches, no confusion Psychiatric: no anxiety, no depression Endocrine: no polyphagia, no polydipsia, no polyuria, no nocturia Exam - Constitutional Vitals: Temp Pulse Resp BP Pulse Ox 98.9 F 119 H 16 152/102 97 04/08/22 19:31 04/08/22 19:31 04/08/22 19:31 04/08/22 19:31 04/08/22 19:31 General appearance: Present: no acute distress, well-nourished, other (ill looking) - EENT Eyes: Present: PERRL, EOM intact. Absent: scleral icterus ENT: hearing intact, clear oral mucosa, dentition normal - Neck Neck: Present: supple, normal ROM - Respiratory Respiratory effort: normal Respiratory: bilateral: CTA - Cardiovascular Rhythm: regular Heart Sounds: Present: S1 & S2. Absent: gallop, systolic murmur, diastolic murmur, rub, click - Extremities Extremities: no ischemia, pulses intact, pulses symmetrical, No edema, normal temperature, normal color, Full ROM Peripheral Pulses: within normal limits - Abdominal General gastrointestinal: Present: soft, tender (Moderate tenderness in epigastric region, minimal guarding, no rebound tenderness), non-distended, normal bowel sounds. Absent: mass - Integumentary Integumentary: Present: clear, warm, dry, normal turgor. Absent: rash - Musculoskeletal Musculoskeletal: strength equal bilaterally - Psychiatric Psychiatric: appropriate mood/affect, intact judgment & insight, memory intact, cooperative - Neurologic Neurologic: CNII-XII intact, no focal deficits, moves all extremities Results - Labs CBC & Chem 7: 04/09/22 02:07 04/09/22 02:07 Labs: Abnormal lab results 04/09/22 04/09/22 Range/Units 02:07 02:07 WBC 23.0 H (4.5-11.0) K/mm3 MCV 101 H (79-97) fl Seg Neuts % (Manual) 99.0 H (40.0-70.0) % Lymphocytes % (Manual) 1.0 L (13.4-35.0) % Seg Neutrophils # Man 22.8 H (1.8-7.7) K/mm3 Lymphocytes # (Manual) 0.2 L (1.2-5.4) K/mm3 Chloride 87.1 L (98-107) mmol/L Carbon Dioxide < 2.0 L* (22-30) mmol/L Creatinine 2.0 H (0.6-1.2) mg/dL Glucose 125 H (65-100) mg/dL AST 53 H (5-40) units/L Total Protein 9.2 H (6.3-8.2) g/dL Albumin 5.6 H (3.9-5) g/dL Lipase 77 H (13-60) units/L Assessment and Plan Assessment: 1.Nausea and Vomiting 2.Acute Metabolic Acidosis 3.Abdominal Pain 4.Alcohol Abuse 5.ELISHA-possibly prerenal 6. Leukocytosis-possibly reactive Plan: 1. Patient admitted and placed on IV fluid and sodium bicarbonate drip. 2. Will monitor chemistry. 3. Patient also placed on the CIWA protocol. 4. Patient counseled on quitting alcohol abuse. 5. We will consult nephrology for evaluation. DVT Prophylaxis: Subcutaneous heparin Code Status: Full code
[2022-04-09 04:47] LABS: Color,Urine Colorless (Yellow)
[2022-04-09 04:50] LABS: Mucus,Urine FEW /HPF
[2022-04-09 04:55] LABS: HCG Qualitative,Urine Negative (Negative)
[2022-04-09] MEDS ORDERED: diazePAM 10 MG/2 ML SYRINGE IV ONE (04:59)
[2022-04-09] MEDS ORDERED: D5W/0.45% NACL 1,000 ML IV SCH (05:00)
--- NOTE | 2022-04-09 05:57 | Cat Scan Report ---
CT ABDOMEN AND PELVIS WITHOUT CONTRAST INDICATION / CLINICAL INFORMATION: Acute abdominal pain, with nausea and. TECHNIQUE: Axial CT images were obtained through the abdomen and pelvis without IV contrast. All CT scans at this location are performed using CT dose reduction for ALARA by means of automated exposure control. COMPARISON: None available. FINDINGS: LOWER CHEST: No significant abnormality of the imaged chest. LIVER: Hepatomegaly. Low-attenuation compatible with hepatic steatosis. GALLBLADDER / BILE DUCTS: Gallbladder sludge without inflammatory changes. Biliary ducts grossly unr emarkable. SPLEEN: No significant abnormality. PANCREAS: No significant abnormality. ADRENALS: No significant abnormality. KIDNEYS/URETERS: No stones or hydronephrosis. No solid renal lesion. STOMACH / DUODENUM / SMALL BOWEL: The stomach, duodenum, and small bowel demonstrate no significant a bnormality. No specific abnormality of the mesentery demonstrated. COLON: The large bowel is not well distended. The cecum and ascending colon demonstrate similar patte rn of submucosal hypoattenuation that could reflect sequelae of prior colitis. No inflammatory strand ing is present. APPENDIX: No significant abnormality. PERITONEUM: No free air or free fluid are present within the abdomen or pelvis. LYMPH NODES: No significant adenopathy. AORTA / ARTERIES: No significant abnormality. IVC / VEINS: No significant abnormality. URINARY BLADDER: No significant abnormality. REPRODUCTIVE ORGANS: No significant abnormality. SKELETAL SYSTEM: No significant abnormality. ADDITIONAL ABDOMINAL/PELVIC FINDINGS: None. IMPRESSION: 1. No imaging findings to suggest etiology of the provided symptoms. Nonacute findings as detailed. Signer Name: Rell Quinonez II, MD Signed: 04/09/2022 5:53 AM Workstation Name: [id number]
[2022-04-09] MEDS ORDERED: THIAMINE 100 MG, FOLIC ACID 1 MG, MULTIPLE VITAMIN INJ, ADULT 10 ML in SODIUM CHLORIDE ... IV ONE (06:00)
[2022-04-09] MEDS ORDERED: SODIUM BICARB 8.4% 50 MEQ/50 ML SYRINGE IV NR (09:09)
[2022-04-09] MEDS ORDERED: LACTATED RINGERS 2,000 ML IV ONE (09:30)
[2022-04-09] MEDS ORDERED: MAGNESIUM SULFATE 2 GM/50 ML BAG IV ONE (10:00)
[2022-04-09] MEDS ORDERED: NON-FORMULARY EACH (Esomeprazole Magnesium [Nexium] 40 MG Capsule.Dr) PO SCH (10:00)
--- NOTE | 2022-04-09 10:46 | Event Note ---
Date: 04/09/22 Patient seen and evaluated. Patient needs STAT ABG and BMP recheck. Sodium bicarb push and bicarb drip has been ordered. May need HD based on results of pending labs. Recommend ICU evaluation and transfer. Case discussed with Dr Gutierrez.
[2022-04-09] MEDS ORDERED: SODIUM CHLORIDE 0.9% 100 ML IV PRN (11:30)
[2022-04-09 11:35] LABS: Calcium 8.1 mg/dL (8.4-10.2)
[2022-04-09 11:42] LABS: ABG Base Excess -13.8 mmol/L (-2.0-3.0); ABG HCO3 9.4 mmol/L (20.0-26.0); ABG Methemoglobin 0.6 % (0.0-1.5); ABG Oxygen Saturation 98.5 % (95.0-99.0); ABG PCO2 16.5 mm Hg; ABG PH 7.373 pH Units (7.350-7.450)
[2022-04-09] MEDS: ONDANSETRON 4 MG/2 ML INJ IV PRN ×2 (12:45→20:38)
--- NOTE | 2022-04-09 13:33 | Consultation ---
History of Present Illness - Reason for Consult Consult date: 04/09/22 acute renal failure, metabolic acidosis - History of Present Illness This is a 36-year-old woman with history of pancreatitis and alcohol abuse who presented to the emergency department with 3-day history of abdominal pain, na usea and vomiting. Patient states that she drinks half a pint daily but has not had any alcohol in the last 3 days. She denies drinking antifreeze. She denies hematuria and dysuria. Nephrology was consulted for acute kidney injury and acidosis. Past History Past Medical History: other (Pancreatitis) Past Surgical History: No surgical history Social history: smoking (Current daily smoker), alcohol abuse (Drinks alcohol daily) Family history: no significant family history Medications and Allergies Allergies Allergy/AdvReac Type Severity Reaction Status Date / Time No Known Allergies Allergy Unverified 02/23/19 07:15 Home Medications Medication Instructions Recorded Confirmed Last Taken Type Ibuprofen [Motrin] 600 mg PO Q8H PRN #20 tablet 02/23/19 Unknown Rx Amoxicillin [Trimox CAP] 500 mg PO Q8H #30 capsule 10/06/21 Unknown Rx Clarithromycin [Biaxin] 500 mg PO BID #20 tab 10/06/21 Unknown Rx Esomeprazole Magnesium [NexIUM] 40 mg PO QDAY #30 10/06/21 Unknown Rx Ondansetron [Zofran ODT TAB] 4 mg PO Q8HR PRN #20 tab.rapdis 10/06/21 Unknown Rx Active Meds: Active Medications Acetaminophen (Acetaminophen 325 Mg Tab) 650 mg PO Q6H PRN PRN Reason: Pain MILD(1-3)/Fever >100.5/CARL Chlordiazepoxide HCl (Chlordiazepoxide 25 Mg Cap) 50 mg PO Q1HR PRN PRN Reason: CIWA-Ar 8-15 Heparin Sodium (Porcine) (Heparin 5,000 Unit/1 Ml Vial) 5,000 unit SUB-Q Q8HR [facility] Sodium Bicarbonate 150 meq/ (Sterile Water) 1,150 mls @ 150 mls/hr IV DIRECT [facility] Stop: 04/13/22 17:39 Sodium Chloride (Nacl 0.9%) 100 mls @ 999 mls/hr IV EDELMIRA PRN PRN Reason: Hypotension Lorazepam (Lorazepam 2 Mg/Ml Vial) 2 mg IV Q1HR PRN PRN Reason: CIWA-Ar 8-15 Lorazepam (Lorazepam 2 Mg/Ml Vial) 4 mg IV Q1HR PRN PRN Reason: CIWA-Ar 16-25 Lorazepam (Lorazepam 2 Mg/Ml Vial) 4 mg IV Q15MIN PRN PRN Reason: CIWA-Ar >25 Morphine Sulfate (Morphine 4 Mg/1 Ml Inj) 4 mg IV Q4H PRN PRN Reason: Pain , Severe (7-10) Last Admin: 04/09/22 12:45 Dose: 4 mg Morphine Sulfate (Morphine 2 Mg/1 Ml Inj) 2 mg IV Q4H PRN PRN Reason: Pain, Moderate (4-6) Ondansetron HCl (Ondansetron 4 Mg/2 Ml Inj) 4 mg IV Q8H PRN PRN Reason: Nausea And Vomiting Last Admin: 04/09/22 12:45 Dose: 4 mg Pantoprazole Sodium (Pantoprazole 40 Mg Tab) 40 mg PO QDAC [facility] Sodium Chloride (Sodium Chloride 0.9% 10 Ml Flush Syringe) 10 ml IV BID [facility] Sodium Chloride (Sodium Chloride 0.9% 10 Ml Flush Syringe) 10 ml IV PRN PRN PRN Reason: LINE FLUSH Review of Systems All systems: negative Gastrointestinal: abdominal pain, nausea, vomiting Exam - Vital Signs Vital signs: Vital Signs Temp Pulse Resp BP Pulse Ox 98.9 F 119 H 16 152/102 97 04/08/22 19:31 04/08/22 19:31 04/08/22 19:31 04/08/22 19:31 04/08/22 19:31 - Physical Exam Narrative exam: Constitutional: no acute distress Head: NC/AT Neck: supple Lungs: clear to auscultation CV: RRR, no M/R/G Abdomen: soft, non-tender, bowel sounds present Back: nontender Extremities: no edema, pulses WNL Skin: intact Neuro: no focal deficits, alert and oriented x4 Results - Lab Results 04/09/22 02:07 04/09/22 11:02 Most recent lab results ABG pH 7.373 pH Units (7.350-7.450) 04/09/22 11:32 ABG pCO2 16.5 mm Hg 04/09/22 11:32 ABG pO2 124.0 mm Hg (80.0-90.0) H 04/09/22 11:32 ABG HCO3 9.4 mmol/L (20.0-26.0) L 04/09/22 11:32 ABG O2 Saturation 98.5 % (95.0-99.0) 04/09/22 11:32 Calcium 8.1 mg/dL (8.4-10.2) L D 04/09/22 11:02 Phosphorus 2.70 mg/dL (2.5-4.5) 04/09/22 11:02 Magnesium 1.20 mg/dL (1.7-2.3) L 04/09/22 11:02 Assessment and Plan Severe high anion gap metabolic acidosis Acute kidney injury Abdominal pain Nausea/vomiting Leukocytosis Plan for urgent dialysis following access placement for clearance. Cannot rule out toxic ingestion. Plan was discussed with patient who is in agreement. Continue medical management in the interim with sodium bicarb pushes, also added sodium bicarb drip Follow-up serum osmole Check renal ultrasound Recommend checking drug screen as well Renally dose medications Avoid nephrotoxins Renal diet Thank you for involving us in the care of this patient. We will continue to follow along and make recommendations from renal standpoint. Please do not hesitate to call us with any questions. Critical care time 32 minutes.
[2022-04-09] MEDS: SODIUM BICARBONATE 150 MEQ in WATER FOR INJECTION (PF) 1,000 ML IV SCH ×2 (14:12→21:12)
[2022-04-09] MEDS: HEPARIN 5,000 UNIT/1 ML VIAL SUB-Q SCH ×3 (14:49→21:12)
[2022-04-09] MEDS: PANTOPRAZOLE 40 MG TAB PO SCH (15:20)
[2022-04-09 16:17] LABS: Hepatitis B Surface Antigen Non-Reactive (Negative); Hepatitis C Virus Antibody Non-Reactive (NonReactive)
--- NOTE | 2022-04-09 16:19 | Procedure Note ---
Date of procedure: 04/09/22 Pre-op diagnosis: Severe High Anion Gap Metabolic Acidosis Post-op diagnosis: same Procedure: Temporary VasCath Placement Patient was evaluated and required temporary VasCath placement for urgent dialysis Informed consent obtained from the patient. Consent signed, witnessed, and placed in the chart A time-out was completed verifying correct patient, procedure, site, and positioning. Hand hygiene were performed immediately prior to the procedure and sterile technique was used throughout the procedure. The patient's right neck was prepped with chlorhexidine scrub then draped in a sterile fashion. 1% Lidocaine was used to anesthetize the surrounding skin area. Ultrasound was utilized to localize the right internal jugular vein without difficulty. Then the right internal jugular vein was accessed using ultrasound guidance and 15cm trialysis catheter was introduced using the Seldinger technique. The catheter threaded smoothly over the guidewire and advanced easily into the vein and brisk blood return was observed from each lumen. Each lumen were flushed and clamped, then the catheter was sutured in place, a Biopatch was placed at the insertion site, and covered with a sterile dressing. Patient tolerated the procedure well, no signs of any adverse reaction noted. CXR shows good placement without PTX. VasCath is okay to use. Total Time Spent with Patient (Minutes): 60 minutes Anesthesia: local Surgeon: ANN MARIE SOTO Estimated blood loss: minimal Condition: critical Disposition: ICU
--- NOTE | 2022-04-09 16:27 | Consultation ---
History of Present Illness Consult date: 04/09/22 Requesting physician: ROD BERRY History of present illness: 36-year-old -[place]inames[place] female with known history of pancreatitis, history of alcohol abuse presenting to the emergency room today complaining of nausea and vomiting. Patient has also had associated abdominal pain. Symptoms have been ongoing for the past 3 days. Patient denies any fever or chills, denies any chest pain, denies any shortness of breath, no headache or dizziness and no diaphoresis. Patient admits that she drinks alcohol almost on a daily basis but she has not had any alcohol intake in about 2 days. She denies any withdrawal symptoms. Abdominal pain is more in the epigastric region. She denies any hematemesis, denies any hematochezia or bright red blood per rectum. Patient states she has had similar episodes in the past. Work-up in the emergency room today, lab reveals leukocytosis of 23, creatinine of 2.0, CO2 of less than 2, lactic acid of 3.7. Urinalysis reveals ketones of 4+. CT of the abdomen and pelvis reveals no acute findings. Patient being admitted to the ICU for severe metabolic acidosis, ELISHA and abdominal pain and requires Vascular access for emergent HD Patient seen and examined. Vitals, labs, medications, chart reviewed. Past History Past Medical History: other (Pancreatitis) Past Surgical History: No surgical history Social history: smoking (Current daily smoker), alcohol abuse (Drinks alcohol daily) Family history: no significant family history Medications and Allergies Allergies Allergy/AdvReac Type Severity Reaction Status Date / Time No Known Allergies Allergy Unverified 02/23/19 07:15 Home Medications Medication Instructions Recorded Confirmed Last Taken Type Ibuprofen [Motrin] 600 mg PO Q8H PRN #20 tablet 02/23/19 Unknown Rx Amoxicillin [Trimox CAP] 500 mg PO Q8H #30 capsule 10/06/21 Unknown Rx Clarithromycin [Biaxin] 500 mg PO BID #20 tab 10/06/21 Unknown Rx Esomeprazole Magnesium [NexIUM] 40 mg PO QDAY #30 10/06/21 Unknown Rx Ondansetron [Zofran ODT TAB] 4 mg PO Q8HR PRN #20 tab.rapdis 10/06/21 Unknown Rx Active Meds: Active Medications Acetaminophen (Acetaminophen 325 Mg Tab) 650 mg PO Q6H PRN PRN Reason: Pain MILD(1-3)/Fever >100.5/CARL Chlordiazepoxide HCl (Chlordiazepoxide 25 Mg Cap) 50 mg PO Q1HR PRN PRN Reason: CIWA-Ar 8-15 Heparin Sodium (Porcine) (Heparin 5,000 Unit/1 Ml Vial) 5,000 unit SUB-Q Q8HR [facility] Last Admin: 04/09/22 16:11 Dose: Not Given Sodium Bicarbonate 150 meq/ (Sterile Water) 1,150 mls @ 150 mls/hr IV DIRECT [facility] Stop: 04/13/22 17:39 Last Admin: 04/09/22 14:12 Dose: 150 mls/hr Sodium Chloride (Nacl 0.9%) 100 mls @ 999 mls/hr IV EDELMIRA PRN PRN Reason: Hypotension Lorazepam (Lorazepam 2 Mg/Ml Vial) 2 mg IV Q1HR PRN PRN Reason: CIWA-Ar 8-15 Lorazepam (Lorazepam 2 Mg/Ml Vial) 4 mg IV Q1HR PRN PRN Reason: CIWA-Ar 16-25 Lorazepam (Lorazepam 2 Mg/Ml Vial) 4 mg IV Q15MIN PRN PRN Reason: CIWA-Ar >25 Morphine Sulfate (Morphine 4 Mg/1 Ml Inj) 4 mg IV Q4H PRN PRN Reason: Pain , Severe (7-10) Last Admin: 04/09/22 12:45 Dose: 4 mg Morphine Sulfate (Morphine 2 Mg/1 Ml Inj) 2 mg IV Q4H PRN PRN Reason: Pain, Moderate (4-6) Ondansetron HCl (Ondansetron 4 Mg/2 Ml Inj) 4 mg IV Q8H PRN PRN Reason: Nausea And Vomiting Last Admin: 04/09/22 12:45 Dose: 4 mg Pantoprazole Sodium (Pantoprazole 40 Mg Tab) 40 mg PO QDAC [facility] Last Admin: 04/09/22 15:20 Dose: Not Given Sodium Chloride (Sodium Chloride 0.9% 10 Ml Flush Syringe) 10 ml IV BID [facility] Last Admin: 04/09/22 14:49 Dose: Not Given Sodium Chloride (Sodium Chloride 0.9% 10 Ml Flush Syringe) 10 ml IV PRN PRN PRN Reason: LINE FLUSH Review of Systems Constitutional: no weight loss, no weight gain, no fever, no chills, no sweats Cardiovascular: no chest pain, no orthopnea, no palpitations, no edema, no syncope, no lightheadedness Respiratory: no cough, no cough with sputum, no hemoptysis, no shortness of breath, no dyspnea on exertion Gastrointestinal: abdominal pain, nausea, vomiting, no change in bowel habits, no hematemesis, no melena Neurological: no paralysis, no weakness, no seizures, no syncope, no ataxia Endocrine: no cold intolerance, no heat intolerance, no polyphagia, no excessive thirst, no polydipsia, no polyuria Hematologic/Lymphatic: no easy bruising, no easy bleeding Physical Examination Vital signs: Vital Signs Temp Pulse Resp BP Pulse Ox 98.9 F 119 H 16 152/102 97 04/08/22 19:04/08/22 19:31 04/08/22 19:31 04/08/22 19:04/08/22 19:31 General appearance: Present: no acute distress, well-nourished, other (ill looking) - EENT Eyes: Present: PERRL, EOM intact. Absent: scleral icterus ENT: hearing intact, clear oral mucosa, dentition normal - Neck Neck: Present: supple, normal ROM - Respiratory Respiratory effort: normal Respiratory: bilateral: CTA - Cardiovascular Rhythm: regular Heart Sounds: Present: S1 & S2. Absent: gallop, systolic murmur, diastolic murmur, rub, click - Extremities Extremities: no ischemia, pulses intact, pulses symmetrical, No edema, normal temperature, normal color, Full ROM Peripheral Pulses: within normal limits - Abdominal General gastrointestinal: Present: soft, tender (Moderate tenderness in epigastric region, minimal guarding, no rebound tenderness), non-distended, normal bowel sounds. Absent: mass - Integumentary Integumentary: Present: clear, warm, dry, normal turgor. Absent: rash - Musculoskeletal Musculoskeletal: strength equal bilaterally - Psychiatric Psychiatric: appropriate mood/affect, intact judgment & insight, memory intact, cooperative - Neurologic Neurologic: CNII-XII intact, no focal deficits, moves all extremities General appearance: no acute distress, appears uncomfortable Eyes: non-icteric ENT: oropharynx dry Neck: supple, no lymphadenopathy, no JVD Effort: mildly labored Ascultation: Bilateral: clear, diminished breath sounds Cardiovascular: regular rate and rhythm, other (S1,S2) Gastrointestinal: hypoactive bowel sounds, tender, non-distended Integumentary: normal Extremities: no cyanosis, no edema, pink and warm, pulses normal normal mental status, non-focal exam, pupils equal and round, motor strength normal and mood appropriate, affect normal Results - Laboratory Findings CBC and BMP: 04/09/22 02:07 04/09/22 11:02 ABG ABG pH 7.373 pH Units (7.350-7.450) 04/09/22 11:32 ABG pCO2 16.5 mm Hg 04/09/22 11:32 ABG pO2 124.0 mm Hg (80.0-90.0) H 04/09/22 11:32 ABG O2 Saturation 98.5 % (95.0-99.0) 04/09/22 11:32 Abnormal lab findings: Abnormal Labs 04/09/22 04/09/22 04/09/22 02:07 02:07 04:03 WBC 23.0 H MCV 101 H Seg Neuts % (Manual) 99.0 H Lymphocytes % (Manual) 1.0 L Seg Neutrophils # Man 22.8 H Lymphocytes # (Manual) 0.2 L ABG pO2 ABG HCO3 ABG Base Excess ABG Hemoglobin Chloride 87.1 L Carbon Dioxide < 2.0 L* Creatinine 2.0 H Glucose 125 H Lactic Acid 3.70 H* Calcium Magnesium AST 53 H Total Creatine Kinase Total Protein 9.2 H Albumin 5.6 H Lipase 77 H Salicylates Acetaminophen 04/09/22 04/09/22 04/09/22 05:01 05:01 05:01 WBC MCV Seg Neuts % (Manual) Lymphocytes % (Manual) Seg Neutrophils # Man Lymphocytes # (Manual) ABG pO2 ABG HCO3 ABG Base Excess ABG Hemoglobin Chloride Carbon Dioxide Creatinine Glucose Lactic Acid Calcium Magnesium 1.20 L AST Total Creatine Kinase Total Protein Albumin Lipase Salicylates < 0.3 L Acetaminophen 5.0 L 04/09/22 04/09/22 04/09/22 11:02 11:02 11:32 WBC MCV Seg Neuts % (Manual) Lymphocytes % (Manual) Seg Neutrophils # Man Lymphocytes # (Manual) ABG pO2 124.0 H ABG HCO3 9.4 L ABG Base Excess -13.8 L ABG Hemoglobin 9.6 L Chloride Carbon Dioxide 4 L* Creatinine 2.0 H Glucose 146 H Lactic Acid Calcium 8.1 L D Magnesium 1.20 L AST Total Creatine Kinase 328 H Total Protein Albumin Lipase Salicylates Acetaminophen Assessment and Plan Severe high anion gap metabolic acidosis ELISHA-possibly prerenal Leukocytosis-possibly reactive Abdominal Pain, h/o Pancreatitis Alcohol use dependence and disorder -Placement of HD catheter and emergent HD -CIWA protocol -Serial BMPs and close hemodynamic monitoring -Avoid nephrotoxins, adjust all medications for CrCL/GFR -Substance abuse counselling -Continue with IV hydration and volume replacement, ABG shows a base excess of - 13 -Get serum lipase levels -Bowel rest, anti emetics, analgesia -Trend temperature curve and WCC. Monitor off antibiotics for now -Accuchecks, avoid hypoglycemia -DVT prophylaxis- Heparin, SCDs -PPI CONDITION- CRITICAL PROGNOSIS- GUARDED CODE STATUS-FULL CODE The high probability of a clinically significant, sudden or life threatening deterioration of the renal and GI systems required my full and direct attention, intervention and personal management. The aggregate critical care time was [35] minutes. This time is in addition to time spent performing reported procedures but includes the following: [x] Data Review and interpretation [x] Patient assessment and monitoring of vital signs [x] Documentation [x] Medication orders and management
--- NOTE | 2022-04-09 16:27 | XRay Report ---
CHEST 1 VIEW 04/09/2022 3:21 PM INDICATION / CLINICAL INFORMATION: RIj Vascath placement.. COMPARISON: None available. FINDINGS: SUPPORT DEVICES: Right IJ CVL tip projects over the superior cavoatrial junction. HEART / MEDIASTINUM: No significant abnormality. LUNGS / PLEURA: No significant pulmonary or pleural abnormality. No pneumothorax. ADDITIONAL FINDINGS: No significant additional findings. IMPRESSION: 1. No acute findings. Signer Name: Akin Mary MD Signed: 04/09/2022 4:23 PM Workstation Name: [id number]
[2022-04-09] MEDS: MORPHINE 2 MG/1 ML INJ IV PRN (20:38)
[2022-04-10 00:46] LABS: BUN/Creatinine Ratio 6; Blood Urea Nitrogen 5 mg/dL (7-17); Calcium 7.8 mg/dL (8.4-10.2); Hemolysis Index 10
[2022-04-10] MEDS ORDERED: POTASSIUM PHOSPHATE 30 MMOL in SODIUM CHLORIDE 0.9% 500 ML 500 ML IV ONE (02:00)
[2022-04-10] MEDS ORDERED: MAGNESIUM SULFATE 1 GM in SODIUM CHLORIDE 0.9% 50 ML IV ONE (02:00)
[2022-04-10] MEDS: MORPHINE 2 MG/1 ML INJ IV PRN ×5 (02:17→22:33)
[2022-04-10] MEDS: SODIUM BICARBONATE 150 MEQ in WATER FOR INJECTION (PF) 1,000 ML IV SCH (03:55)
[2022-04-10 05:08] LABS: BUN/Creatinine Ratio 6; Blood Urea Nitrogen 5 mg/dL (7-17); Calcium 7.4 mg/dL (8.4-10.2); Hemolysis Index 7
[2022-04-10 05:20] LABS: Basophils % (Auto) 0.2 % (0.0-1.8); Eosinophils % (Auto) 0.2 % (0.0-4.3); Hemoglobin 8.4 gm/dl (10.1-14.3); Lymphocytes # (Auto) 1.5 K/mm3 (1.2-5.4); Lymphocytes % (Auto) 21.8 % (13.4-35.0); Mean Corpuscular HGB Conc 34 % (30-34); Mean Corpuscular Volume 98 fl (79-97); Monocytes # (Auto) 0.3 K/mm3 (0.0-0.8); Monocytes % (Auto) 4.3 % (0.0-7.3); Platelet Count 193 K/mm3 (140-440); Red Blood Count 2.57 M/mm3 (3.65-5.03); Red Cell Distribution Width 13.5 % (13.2-15.2)
[2022-04-10] MEDS: HEPARIN 5,000 UNIT/1 ML VIAL SUB-Q SCH ×3 (06:17→21:07)
[2022-04-10] MEDS: PANTOPRAZOLE 40 MG TAB PO SCH (08:04)
--- NOTE | 2022-04-10 08:24 | Progress Note ---
Assessment and Plan Assessment and plan: 36-year-old -[place] female with known history of pancreatitis, history of alcohol abuse presenting to the emergency room today complaining of nausea and vomiting. Patient has also had associated abdominal pain. Symptoms have been ongoing for the past 3 days. Patient denies any fever or chills, denies any chest pain, denies any shortness of breath, no headache or dizziness and no diaphoresis. Patient admits that she drinks alcohol almost on a daily basis but she has not had any alcohol intake in about 2 days. She denies any withdrawal symptoms. Abdominal pain is more in the epigastric region. She denies any hematemesis, denies any hematochezia or bright red blood per rectum. Patient states she has had similar episodes in the past. Work-up in the emergency room today, lab reveals leukocytosis of 23, creatinine of 2.0, CO2 of less than 2, lactic acid of 3.7. Urinalysis reveals ketones of 4+. CT of the abdomen and pelvis reveals no acute findings. Patient being admitted for severe metabolic acidosis, ELISHA and abdominal pain. Past History Past Medical History: other (Pancreatitis) Past Surgical History: No surgical history Social history: smoking (Current daily smoker), alcohol abuse (Drinks alcohol daily) Family history: no significant family history Acute pancreatitis secondary to EtOH Severe high anion gap metabolic acidosis ELISHA-possibly prerenal Hypokalemia Anemia- chronic disease in a premenupausal patient Leukocytosis-possibly reactive Abdominal Pain, h/o Pancreatitis Alcohol use dependence and disorder Plan: Patient underwent HD yesterday for correction of Hyperkalemia Continue supportive care Renal function improved, Counselling provided for 35 mins on importance of ETOH cessation Trial clear liquids today Replace Electrolytes as needed Ok to transfer to Telemetry History Interval history: Right jugular transverses catheter is noted Patient seen and examined states that the pain in the abdomen has improved. She feels hungry. She tolerated dialysis without any complication Hospitalist Physical - Physical exam Narrative exam: VITAL SIGNS: Reviewed. GENERAL: The patient appears normally developed, Vital signs as documented. HEAD: No signs of head trauma. EYES: Pupils are equal. Extraocular motions intact. EARS: Hearing grossly intact. MOUTH: Oropharynx is normal. NECK: No adenopathy, no JVD. CHEST: Chest with clear breath sounds bilaterally. No wheezes, rales, or rhonchi. CARDIAC: Regular rate and rhythm. S1 and S2, without murmurs, gallops, or rubs. VASCULAR: No Edema. Peripheral pulses normal and equal in all extremities. ABDOMEN: Soft, non tender and non distended. No rebound or guarding, and no masses palpated. Bowel Sounds normal. MUSCULOSKELETAL: Good range of motion of all major joints. Extremities without clubbing, cyanosis or edema. NEUROLOGIC EXAM: Alert and oriented x 3 No focal sensory or strength deficits. Speech normal. Follows commands. PSYCHIATRIC: Mood normal. SKIN: detail exam as documented in skin assessment right IJ paralysis - Constitutional Vitals: Temp Pulse Resp BP Pulse Ox 99 F 78 14 122/83 97 04/10/22 04:00 04/10/22 06:00 04/10/22 08:04 04/10/22 06:00 04/10/22 06:00 General appearance: Present: no acute distress, well-nourished, other (ill looking) Results - Labs CBC & Chem 7: 04/10/22 04:00 04/10/22 04:00 Labs: Laboratory Last Values WBC 6.8 K/mm3 (4.5-11.0) 04/10/22 04:00 RBC 2.57 M/mm3 (3.65-5.03) L 04/10/22 04:00 Hgb 8.4 gm/dl (10.1-14.3) L D 04/10/22 04:00 Hct 25.0 % (30.3-42.9) L D 04/10/22 04:00 MCV 98 fl (79-97) H 04/10/22 04:00 MCH 33 pg (28-32) H 04/10/22 04:00 MCHC 34 % (30-34) 04/10/22 04:00 RDW 13.5 % (13.2-15.2) 04/10/22 04:00 Plt Count 193 K/mm3 (140-440) 04/10/22 04:00 Lymph % (Auto) 21.8 % (13.4-35.0) 04/10/22 04:00 [place] % (Auto) 4.3 % (0.0-7.3) 04/10/22 04:00 Eos % (Auto) 0.2 % (0.0-4.3) 04/10/22 04:00 Baso % (Auto) 0.2 % (0.0-1.8) 04/10/22 04:00 Lymph # (Auto) 1.5 K/mm3 (1.2-5.4) 04/10/22 04:00 [place] # (Auto) 0.3 K/mm3 (0.0-0.8) 04/10/22 04:00 Eos # (Auto) 0.0 K/mm3 (0.0-0.4) 04/10/22 04:00 Baso # (Auto) 0.0 K/mm3 (0.0-0.1) 04/10/22 04:00 Add Manual Diff Complete 04/09/22 02:07 Total Counted 100 04/09/22 02:07 Seg Neutrophils % 73.5 % (40.0-70.0) H 04/10/22 04:00 Seg Neuts % (Manual) 99.0 % (40.0-70.0) H 04/09/22 02:07 Band Neutrophils % 0 % 04/09/22 02:07 Lymphocytes % (Manual) 1.0 % (13.4-35.0) L 04/09/22 02:07 Reactive Lymphs % (Man) 0 % 04/09/22 02:07 Monocytes % (Manual) 0 % (0.0-7.3) 04/09/22 02:07 Eosinophils % (Manual) 0 % (0.0-4.3) 04/09/22 02:07 Basophils % (Manual) 0 % (0.0-1.8) 04/09/22 02:07 Metamyelocytes % 0 % 04/09/22 02:07 Myelocytes % 0 % 04/09/22 02:07 Promyelocytes % 0 % 04/09/22 02:07 Blast Cells % 0 % 04/09/22 02:07 Nucleated RBC % Not Reportable 04/09/22 02:07 Seg Neutrophils # 5.0 K/mm3 (1.8-7.7) 04/10/22 04:00 Seg Neutrophils # Man 22.8 K/mm3 (1.8-7.7) H 04/09/22 02:07 Band Neutrophils # 0.0 K/mm3 04/09/22 02:07 Lymphocytes # (Manual) 0.2 K/mm3 (1.2-5.4) L 04/09/22 02:07 Abs React Lymphs (Man) 0.0 K/mm3 04/09/22 02:07 Monocytes # (Manual) 0.0 K/mm3 (0.0-0.8) 04/09/22 02:07 Eosinophils # (Manual) 0.0 K/mm3 (0.0-0.4) 04/09/22 02:07 Basophils # (Manual) 0.0 K/mm3 (0.0-0.1) 04/09/22 02:07 Metamyelocytes # 0.0 K/mm3 04/09/22 02:07 Myelocytes # 0.0 K/mm3 04/09/22 02:07 Promyelocytes # 0.0 K/mm3 04/09/22 02:07 Blast Cells # 0.0 K/mm3 04/09/22 02:07 WBC Morphology Not Reportable 04/09/22 02:07 Hypersegmented Neuts Not Reportable 04/09/22 02:07 Hyposegmented Neuts Not Reportable 04/09/22 02:07 Hypogranular Neuts Not Reportable 04/09/22 02:07 Smudge Cells Not Reportable 04/09/22 02:07 Toxic Granulation Not Reportable 04/09/22 02:07 Toxic Vacuolation Not Reportable 04/09/22 02:07 Dohle Bodies Not Reportable 04/09/22 02:07 Pelger-Huet Anomaly Not Reportable 04/09/22 02:07 Rashi Rods Not Reportable 04/09/22 02:07 Platelet Estimate Consistent w auto 04/09/22 02:07 Clumped Platelets Not Reportable 04/09/22 02:07 Plt Clumps, EDTA Not Reportable 04/09/22 02:07 Large Platelets Not Reportable 04/09/22 02:07 Giant Platelets Not Reportable 04/09/22 02:07 Platelet Satelliting Not Reportable 04/09/22 02:07 Plt Morphology Comment Not Reportable 04/09/22 02:07 RBC Morphology Not Reportable 04/09/22 02:07 Dimorphic RBCs Not Reportable 04/09/22 02:07 Polychromasia Not Reportable 04/09/22 02:07 Hypochromasia Not Reportable 04/09/22 02:07 Poikilocytosis Not Reportable 04/09/22 02:07 Anisocytosis Not Reportable 04/09/22 02:07 Microcytosis Not Reportable 04/09/22 02:07 Macrocytosis Not Reportable 04/09/22 02:07 Spherocytes Not Reportable 04/09/22 02:07 Pappenheimer Bodies Not Reportable 04/09/22 02:07 Sickle Cells Not Reportable 04/09/22 02:07 Target Cells Not Reportable 04/09/22 02:07 Tear Drop Cells Not Reportable 04/09/22 02:07 Ovalocytes Not Reportable 04/09/22 02:07 Helmet Cells Not Reportable 04/09/22 02:07 [place] Bodies Not Reportable 04/09/22 02:07 [place] Rings Not Reportable 04/09/22 02:07 [place] Cells Not Reportable 04/09/22 02:07 Bite Cells Not Reportable 04/09/22 02:07 Crenated Cell Not Reportable 04/09/22 02:07 Elliptocytes Not Reportable 04/09/22 02:07 Acanthocytes (Spur) Not Reportable 04/09/22 02:07 Rouleaux Not Reportable 04/09/22 02:07 Hemoglobin C Crystals Not Reportable 04/09/22 02:07 Schistocytes Not Reportable 04/09/22 02:07 Malaria parasites Not Reportable 04/09/22 02:07 Jacques Bodies Not Reportable 04/09/22 02:07 Hem Pathologist Commnt No 04/09/22 02:07 ABG pH 7.373 pH Units (7.350-7.450) 04/09/22 11:32 ABG pCO2 16.5 mm Hg 04/09/22 11:32 ABG pO2 124.0 mm Hg (80.0-90.0) H 04/09/22 11:32 ABG HCO3 9.4 mmol/L (20.0-26.0) L 04/09/22 11:32 ABG O2 Saturation 98.5 % (95.0-99.0) 04/09/22 11:32 ABG O2 Content 13.3 (0.0-44) 04/09/22 11:32 ABG Base Excess -13.8 mmol/L (-2.0-3.0) L 04/09/22 11:32 ABG Hemoglobin 9.6 gm/dl (12.0-16.0) L 04/09/22 11:32 ABG Carboxyhemoglobin 1.4 % (0.0-5.0) 04/09/22 11:32 ABG Methemoglobin 0.6 % (0.0-1.5) 04/09/22 11:32 Oxyhemoglobin 96.5 % (95.0-99.0) 04/09/22 11:32 FiO2 21 % 04/09/22 11:32 Sodium 139 mmol/L (137-145) 04/10/22 04:00 Potassium 3.4 mmol/L (3.6-5.0) L 04/10/22 04:00 Chloride 91.8 mmol/L (98-107) L 04/10/22 04:00 Carbon Dioxide 33 mmol/L (22-30) H 04/10/22 04:00 Anion Gap 18 mmol/L 04/10/22 04:00 BUN 5 mg/dL (7-17) L 04/10/22 04:00 Creatinine 0.9 mg/dL (0.6-1.2) 04/10/22 04:00 Estimated GFR > 60 ml/min 04/10/22 04:00 BUN/Creatinine Ratio 6 % 04/10/22 04:00 Glucose 88 mg/dL (65-100) 04/10/22 04:00 Osmolality 318 Mosm/kg 04/09/22 11:02 Lactic Acid 1.40 mmol/L (0.7-2.0) 04/09/22 11:02 Calcium 7.4 mg/dL (8.4-10.2) L 04/10/22 04:00 Phosphorus 0.70 mg/dL (2.5-4.5) L* D 04/10/22 00:02 Magnesium 1.20 mg/dL (1.7-2.3) L 04/10/22 00:02 Total Bilirubin 0.50 mg/dL (0.1-1.2) 04/09/22 02:07 AST 53 units/L (5-40) H 04/09/22 02:07 ALT 26 units/L (7-56) 04/09/22 02:07 Alkaline Phosphatase 122 units/L (35-129) 04/09/22 02:07 Total Creatine Kinase 328 units/L (30-135) H 04/09/22 11:02 Total Protein 9.2 g/dL (6.3-8.2) H 04/09/22 02:07 Albumin 5.6 g/dL (3.9-5) H 04/09/22 02:07 Albumin/Globulin Ratio 1.6 % 04/09/22 02:07 Lipase 77 units/L (13-60) H 04/09/22 02:07 TSH 0.534 mlU/mL (0.270-4.200) 04/09/22 05:01 Free T4 0.82 ng/dL (0.76-1.46) 04/09/22 05:01 HCG, Quant 1.00 mIU/mL (0-4) 04/09/22 05:01 Urine Color Colorless (Yellow) 04/09/22 Unknown Urine Turbidity Clear (Clear) 04/09/22 Unknown Specific [place] (Man) 1.025 (1.003-1.030) 04/09/22 Unknown Ur Protein (Man) 2+ mg/dL (Negative) 04/09/22 Unknown Ur Ketones (Man) 4+ (Negative) 04/09/22 Unknown Ur Nitrite (Man) Negative (Negative) 04/09/22 Unknown Urine Bilirubin (Man) Negative (Negative) 04/09/22 Unknown Leukocyte Esterase (Man) Negative (Negative) 04/09/22 Unknown Urine WBC (Auto) 1.0 /HPF (0.0-6.0) 04/09/22 Unknown Urine RBC (Auto) 1.0 /HPF (0.0-6.0) 04/09/22 Unknown U Epithel Cells (Auto) 1.0 /HPF (0-13.0) 04/09/22 Unknown Urine RBC (Manual) Trace (Negative) 04/09/22 Unknown Urine Mucus Few /HPF 04/09/22 Unknown Urine HCG, Qual Negative (Negative) 04/09/22 Unknown Salicylates < 0.3 mg/dL (2.8-20.0) L 04/09/22 05:01 Acetaminophen 5.0 ug/mL (10.0-30.0) L 04/09/22 05:01 Plasma/Serum Alcohol < 0.01 % (0-0.07) 04/09/22 05:01 Hepatitis A IgM Ab Non-reactive (NonReactive) 04/09/22 13:18 Hep Bs Antigen Non-reactive (Negative) 04/09/22 13:18 Hep B Core IgM Ab Non-reactive (NonReactive) 04/09/22 13:18 Hepatitis C Antibody Non-reactive (NonReactive) 04/09/22 13:18 Microbiology: Microbiology 04/09/22 05:01 Peripheral/Venous Blood Culture - Preliminary Culture in Progress 04/09/22 04:03 Peripheral/Venous Blood Culture - Preliminary Culture in Progress [place]/IV: Voiding Method Toilet Active Medications - Current Medications Current Medications: Generic Name Dose Route Start Last Admin Trade Name Freq PRN Reason Stop Dose Admin Acetaminophen 650 mg 04/09/22 04:30 Acetaminophen 325 Mg Tab PO Q6H PRN Pain MILD(1-3)/Fever >100.5/CARL Chlordiazepoxide HCl 50 mg 04/09/22 04:06 Chlordiazepoxide 25 Mg Cap PO Q1HR PRN CIWA-Ar 8-15 Heparin Sodium (Porcine) 5,000 unit 04/09/22 06:00 04/10/22 06:17 Heparin 5,000 Unit/1 Ml Vial SUB-Q 5,000 unit Q8HR TOREY Administration Sodium Bicarbonate 150 meq/ 1,150 mls @ 150 mls/hr 04/09/22 10:00 04/10/22 03:55 Sterile Water IV 04/13/22 17:39 150 mls/hr DIRECT TOREY Administration Sodium Chloride 100 mls @ 999 mls/hr 04/09/22 11:30 Nacl 0.9% IV EDELMIRA PRN Hypotension Lorazepam 2 mg 04/09/22 04:06 Lorazepam 2 Mg/Ml Vial IV Q1HR PRN CIWA-Ar 8-15 Lorazepam 4 mg 04/09/22 04:06 Lorazepam 2 Mg/Ml Vial IV Q1HR PRN CIWA-Ar 16-25 Lorazepam 4 mg 04/09/22 04:06 Lorazepam 2 Mg/Ml Vial IV Q15MIN PRN CIWA-Ar >25 Morphine Sulfate 4 mg 04/09/22 04:30 04/09/22 12:45 Morphine 4 Mg/1 Ml Inj IV 4 mg Q4H PRN Administration Pain , Severe (7-10) Morphine Sulfate 2 mg 04/09/22 04:30 04/10/22 08:04 Morphine 2 Mg/1 Ml Inj IV 2 mg Q4H PRN Administration Pain, Moderate (4-6) Ondansetron HCl 4 mg 04/09/22 04:30 04/09/22 20:38 Ondansetron 4 Mg/2 Ml Inj IV 4 mg Q8H PRN Administration Nausea And Vomiting Pantoprazole Sodium 40 mg 04/09/22 07:30 04/10/22 08:04 Pantoprazole 40 Mg Tab PO 40 mg QDAC TOREY Administration Sodium Chloride 10 ml 04/09/22 10:00 04/10/22 01:14 Sodium Chloride 0.9% 10 Ml Flush Syringe IV 10 ml BID TOREY Administration Sodium Chloride 10 ml 04/09/22 04:30 Sodium Chloride 0.9% 10 Ml Flush Syringe IV PRN PRN LINE FLUSH
[2022-04-10 08:28] LABS: ABG Base Excess 10.7 mmol/L (-2.0-3.0); ABG HCO3 34.6 mmol/L (20.0-26.0); ABG Methemoglobin 0.5 % (0.0-1.5); ABG Oxygen Saturation 97.1 % (95.0-99.0); ABG PH 7.514 pH Units (7.350-7.450); ABG PO2 82.3 mm Hg (80.0-90.0)
--- NOTE | 2022-04-10 08:32 | Progress Note ---
Assessment and Plan Severe high anion gap metabolic acidosis ELISHA-possibly prerenal Leukocytosis-possibly reactive Abdominal Pain, h/o Pancreatitis Alcohol use dependence and disorder - discontinue bicarb drip re: alkalemia - keep Trialysis catheter in place for now - replace Magnesium and Phosphorus - prn supplemental oxygen for target O2 sat's > 90% acutely - aspiration precautions - prn bronchodilators with pulmonary hygiene per RT - continue accuchecks resumed with glycemic control per SSI for target blood glucose of < 180 mg/dL; avoid hypoglycemia - AB's per ID rec's - prn analgesia per pain score - Maintenance of sleep-wake cycle, avoid delirium - G.I. & VTE prophylaxis - PT/OT/ROM exercises - mobility protocols for pressure ulcer prophylaxis - Monitor hemodynamics closely - continue other care per attending / other consultants - discharge planning ongoing concurrently .... Re-evaluate in am & prn .... ok to transfer to medical floor Subjective Date of service: 04/10/22 Principal diagnosis: HAGMA; ELISHA; Leukocytosis; Abdominal Pain; h/o Pancreatitis; ETOH abuse Interval history: Patient is seen today for: Severe HAGMA; ELISHA; Leukocytosis; Abdominal Pain; h/o Pancreatitis; ETOH dependence and disorder Seen and examined at bedside; 24hour events reviewed; nursing and respiratory care staff consulted; no adverse overnight events reported to me; resting peacefully in bed; feels better; denies abdominal pain; no N/V/F/C; kept her breakfast down Objective Vital Signs - 12hr 04/09/22 04/09/22 04/09/22 20:45 21:00 21:15 Temperature Pulse Rate 105 H 96 H 91 H Respiratory 20 15 9 L Rate Blood Pressure 132/92 149/95 149/95 O2 Sat by Pulse 100 99 99 Oximetry 04/09/22 04/09/22 04/10/22 22:00 23:00 00:00 Temperature 99.2 F Pulse Rate 83 91 H 97 H Respiratory 11 L 14 15 Rate Blood Pressure 142/97 120/84 148/97 O2 Sat by Pulse 100 100 100 Oximetry 04/10/22 04/10/22 04/10/22 00:07 01:00 02:00 Temperature Pulse Rate 113 H 85 87 Respiratory 16 9 L 9 L Rate Blood Pressure 148/97 130/93 130/90 O2 Sat by Pulse 100 99 98 Oximetry 04/10/22 04/10/22 04/10/22 03:00 04:00 05:00 Temperature 99 F Pulse Rate 77 85 83 Respiratory 9 L 14 8 L Rate Blood Pressure 137/85 133/91 125/91 O2 Sat by Pulse 97 98 98 Oximetry 04/10/22 04/10/22 04/10/22 06:00 08:04 08:20 Temperature Pulse Rate 78 Respiratory 9 L 14 Rate Blood Pressure 122/83 O2 Sat by Pulse 97 99 Oximetry Constitutional: no acute distress Eyes: non-icteric ENT: oropharynx moist Neck: supple, no lymphadenopathy, no JVD Effort: normal Ascultation: Bilateral: clear, diminished breath sounds Percussion: Bilateral: not dull Cardiovascular: regular rate and rhythm, other (S1,S2) Gastrointestinal: normoactive bowel sounds, hypoactive bowel sounds, soft, non- tender, non-distended Integumentary: normal Extremities: no cyanosis, no edema, pulses normal, no ischemia or petechiae Neurologic: normal mental status, non-focal exam, pupils equal and round, motor strength normal and Psychiatric: mood appropriate, affect normal CBC and BMP: 04/10/22 04:00 04/10/22 04:00 ABG, PT/INR, D-dimer: ABG ABG pH 7.514 pH Units (7.350-7.450) H 04/10/22 08:20 ABG pCO2 44.0 mm Hg 04/10/22 08:20 ABG pO2 82.3 mm Hg (80.0-90.0) 04/10/22 08:20 ABG O2 Saturation 97.1 % (95.0-99.0) 04/10/22 08:20 Abnormal lab findings: Abnormal Labs 04/09/22 04/09/22 04/09/22 02:07 02:07 04:03 WBC 23.0 H RBC Hgb Hct MCV 101 H MCH Seg Neutrophils % Seg Neuts % (Manual) 99.0 H Lymphocytes % (Manual) 1.0 L Seg Neutrophils # Man 22.8 H Lymphocytes # (Manual) 0.2 L ABG pH ABG pO2 ABG HCO3 ABG Base Excess ABG Hemoglobin Potassium Chloride 87.1 L Carbon Dioxide < 2.0 L* BUN Creatinine 2.0 H Glucose 125 H Lactic Acid 3.70 H* Calcium Phosphorus Magnesium AST 53 H Total Creatine Kinase Total Protein 9.2 H Albumin 5.6 H Lipase 77 H Salicylates Acetaminophen 04/09/22 04/09/22 04/09/22 05:01 05:01 05:01 WBC RBC Hgb Hct MCV MCH Seg Neutrophils % Seg Neuts % (Manual) Lymphocytes % (Manual) Seg Neutrophils # Man Lymphocytes # (Manual) ABG pH ABG pO2 ABG HCO3 ABG Base Excess ABG Hemoglobin Potassium Chloride Carbon Dioxide BUN Creatinine Glucose Lactic Acid Calcium Phosphorus Magnesium 1.20 L AST Total Creatine Kinase Total Protein Albumin Lipase Salicylates < 0.3 L Acetaminophen 5.0 L 04/09/22 04/09/22 04/09/22 11:02 11:02 11:32 WBC RBC Hgb Hct MCV MCH Seg Neutrophils % Seg Neuts % (Manual) Lymphocytes % (Manual) Seg Neutrophils # Man Lymphocytes # (Manual) ABG pH ABG pO2 124.0 H ABG HCO3 9.4 L ABG Base Excess -13.8 L ABG Hemoglobin 9.6 L Potassium Chloride Carbon Dioxide 4 L* BUN Creatinine 2.0 H Glucose 146 H Lactic Acid Calcium 8.1 L D Phosphorus Magnesium 1.20 L AST Total Creatine Kinase 328 H Total Protein Albumin Lipase Salicylates Acetaminophen 04/10/22 04/10/22 04/10/22 00:02 04:00 04:00 WBC RBC 2.57 L Hgb 8.4 L D Hct 25.0 L D MCV 98 H MCH 33 H Seg Neutrophils % 73.5 H Seg Neuts % (Manual) Lymphocytes % (Manual) Seg Neutrophils # Man Lymphocytes # (Manual) ABG pH ABG pO2 ABG HCO3 ABG Base Excess ABG Hemoglobin Potassium 3.3 L D 3.4 L Chloride 95.0 L 91.8 L Carbon Dioxide 33 H BUN 5 L 5 L Creatinine Glucose Lactic Acid Calcium 7.8 L 7.4 L Phosphorus 0.70 L* D Magnesium 1.20 L AST Total Creatine Kinase Total Protein Albumin Lipase Salicylates Acetaminophen 04/10/22 08:20 WBC RBC Hgb Hct MCV MCH Seg Neutrophils % Seg Neuts % (Manual) Lymphocytes % (Manual) Seg Neutrophils # Man Lymphocytes # (Manual) ABG pH 7.514 H ABG pO2 ABG HCO3 34.6 H ABG Base Excess 10.7 H ABG Hemoglobin 8.2 L Potassium Chloride Carbon Dioxide BUN Creatinine Glucose Lactic Acid Calcium Phosphorus Magnesium AST Total Creatine Kinase Total Protein Albumin Lipase Salicylates Acetaminophen Allied health notes reviewed: nursing
--- NOTE | 2022-04-10 11:51 | Ultrasound Report ---
ULTRASOUND RENAL INDICATION / CLINICAL INFORMATION: ELISHA. COMPARISON: CT abdomen pelvis performed yesterday. FINDINGS: RIGHT KIDNEY: Length = 12.4 cm. - Echogenicity: Mildly echogenic. - Parenchymal Thickness: Normal. - Hydronephrosis: None. - Cyst / Mass: None. - Stones: None seen. LEFT KIDNEY: Length = 12.3 cm. - Echogenicity: Mildly echogenic. - Parenchymal Thickness: Normal. - Hydronephrosis: None. - Cyst / Mass: None. - Stones: None seen. URINARY BLADDER: Distended. No significant abnormality. FREE FLUID: Trace perinephric fluid noted on the right. ADDITIONAL FINDINGS: None. IMPRESSION: 1. No acute sonographic abnormality. 2. Findings suggestive of medical renal disease bilaterally. There is trace perinephric fluid noted o n the right. Scribed by: Florence Wall RDMS, CAPRI, PRINCESS Scribed: 04/10/2022 10:40 AM I have reviewed the images, agree with this report, and edited this report as needed. Signer Name: Adriano Lopez MD Signed: 04/10/2022 11:46 AM Workstation Name: [employer]
[2022-04-10] MEDS ORDERED: MAGNESIUM SULFATE 4 GM/100 ML BAG IV SCH (12:00)
[2022-04-10 14:34] LABS: Creatinine,Urine 61.2 mg/dL (0.1-20.0)
--- NOTE | 2022-04-10 21:19 | Progress Note ---
Assessment and Plan Severe high anion gap metabolic acidosis, resolved following HD Acute kidney injury, cr has improved Abdominal pain Nausea/vomiting Leukocytosis S/p urgent dialysis yesterdy following access placement for clearance. Cannot rule out toxic ingestion. No indication for dialysis today, if labs remain stable tomorrow catheter can be removed Hold further IVF Renal ultrasound unremarkable Avoid nephrotoxins Renal diet Thank you for involving us in the care of this patient. We will continue to follow along and make recommendations from renal standpoint. Please do not hesitate to call us with any questions.. Subjective Date of service: 04/10/22 Principal diagnosis: HAGMA; ELISHA; Leukocytosis; Abdominal Pain; h/o Pancreatitis; ETOH abuse Interval history: Resting in bed upon visit. S/p dialysis yesterday. Feels better this morning. Objective - Exam Narrative Exam: Constitutional: no acute distress Head: NC/AT Neck: supple Lungs: clear to auscultation CV: RRR, no M/R/G Abdomen: soft, non-tender, bowel sounds present Back: nontender Extremities: no edema, pulses WNL Skin: intact Neuro: no focal deficits, alert and oriented x4 - Vital Signs Vital signs: Vital Signs - 12hr 04/10/22 04/10/22 04/10/22 10:00 11:01 12:00 Temperature 99.6 F Pulse Rate 81 116 H 84 Respiratory 10 L 13 11 L Rate Respiratory 12 Rate [Abdomen] Blood Pressure 133/87 133/87 143/96 O2 Sat by Pulse 91 97 Oximetry 04/10/22 04/10/22 04/10/22 13:00 14:00 15:00 Temperature Pulse Rate 83 76 Respiratory 13 11 L Rate Respiratory Rate [Abdomen] Blood Pressure 133/90 132/96 133/90 O2 Sat by Pulse 99 97 100 Oximetry 04/10/22 16:00 Temperature Pulse Rate 76 Respiratory Rate Respiratory Rate [Abdomen] Blood Pressure O2 Sat by Pulse Oximetry - Lab 04/10/22 04:00 04/10/22 04:00 Most recent lab results ABG pH 7.514 pH Units (7.350-7.450) H 04/10/22 08:20 ABG pCO2 44.0 mm Hg 04/10/22 08:20 ABG pO2 82.3 mm Hg (80.0-90.0) 04/10/22 08:20 ABG HCO3 34.6 mmol/L (20.0-26.0) H 04/10/22 08:20 ABG O2 Saturation 97.1 % (95.0-99.0) 04/10/22 08:20 Calcium 7.4 mg/dL (8.4-10.2) L 04/10/22 04:00 Phosphorus 0.70 mg/dL (2.5-4.5) L* D 04/10/22 00:02 Magnesium 1.20 mg/dL (1.7-2.3) L 04/10/22 00:02 Urine Creatinine 61.2 mg/dL (0.1-20.0) H 04/10/22 07:30 Medications & Allergies - Medications Allergies/Adverse Reactions: Allergies No Known Allergies Allergy (Unverified 02/23/19 07:15) Home Medications: Home Medications Medication Instructions Recorded Confirmed Last Taken Type Amoxicillin [Trimox CAP] 500 mg PO Q8H #30 capsule 10/06/21 04/10/22 Unknown Rx Clarithromycin [Biaxin] 500 mg PO BID #20 tab 10/06/21 04/10/22 Unknown Rx Esomeprazole Magnesium [NexIUM] 40 mg PO QDAY #30 10/06/21 04/10/22 01/24/22 Rx 40 mg Ondansetron [Zofran ODT TAB] 4 mg PO Q8HR PRN #20 tab.rapdis 10/06/21 04/10/22 12/25/21 Rx Active Medications: Generic Name Dose Route Start Last Admin Trade Name Freq PRN Reason Stop Dose Admin Acetaminophen 650 mg 04/09/22 04:30 Acetaminophen 325 Mg Tab PO Q6H PRN Pain MILD(1-3)/Fever >100.5/CARL Chlordiazepoxide HCl 50 mg 04/09/22 04:06 Chlordiazepoxide 25 Mg Cap PO Q1HR PRN CIWA-Ar 8-15 Heparin Sodium (Porcine) 5,000 unit 04/09/22 06:00 04/10/22 21:07 Heparin 5,000 Unit/1 Ml Vial SUB-Q 5,000 unit Q8HR TOREY Administration Sodium Chloride 100 mls @ 999 mls/hr 04/09/22 11:30 Nacl 0.9% IV EDELMIRA PRN Hypotension Lorazepam 2 mg 04/09/22 04:06 Lorazepam 2 Mg/Ml Vial IV Q1HR PRN CIWA-Ar 8-15 Lorazepam 4 mg 04/09/22 04:06 Lorazepam 2 Mg/Ml Vial IV Q1HR PRN CIWA-Ar 16-25 Lorazepam 4 mg 04/09/22 04:06 Lorazepam 2 Mg/Ml Vial IV Q15MIN PRN CIWA-Ar >25 Morphine Sulfate 2 mg 04/09/22 04:30 04/10/22 18:42 Morphine 2 Mg/1 Ml Inj IV 2 mg Q4H PRN Administration Pain, Moderate (4-6) Ondansetron HCl 4 mg 04/09/22 04:30 04/09/22 20:38 Ondansetron 4 Mg/2 Ml Inj IV 4 mg Q8H PRN Administration Nausea And Vomiting Pantoprazole Sodium 40 mg 04/09/22 07:30 04/10/22 08:04 Pantoprazole 40 Mg Tab PO 40 mg QDAC TOREY Administration Sodium Chloride 10 ml 04/09/22 10:00 04/10/22 21:07 Sodium Chloride 0.9% 10 Ml Flush Syringe IV 10 ml BID TOREY Administration Sodium Chloride 10 ml 04/09/22 04:30 Sodium Chloride 0.9% 10 Ml Flush Syringe IV PRN PRN LINE FLUSH
[2022-04-11] MEDS: MORPHINE 2 MG/1 ML INJ IV PRN ×4 (04:41→21:38)
[2022-04-11 05:32] LABS: Alanine Aminotransferase 13 units/L (7-56); Albumin 3.9 g/dL (3.9-5); BUN/Creatinine Ratio 5; Blood Urea Nitrogen 4 mg/dL (7-17); Calcium 8.5 mg/dL (8.4-10.2); Hemolysis Index 20
[2022-04-11] MEDS: HEPARIN 5,000 UNIT/1 ML VIAL SUB-Q SCH ×3 (06:46→21:38)
--- NOTE | 2022-04-11 09:46 | Event Note ---
Date: 04/11/22 ELISHA and acidosis has resolved OK to remove vasc cath Replete potassium to goal Will sign off. Please call with questions.
[2022-04-11] MEDS: PANTOPRAZOLE 40 MG TAB PO SCH (10:47)
--- NOTE | 2022-04-11 11:01 | Progress Note ---
Assessment and Plan Assessment and plan: 36-year-old -Turk[place] female with known history of pancreatitis, history of alcohol abuse presenting to the emergency room today complaining of nausea and vomiting. Patient has also had associated abdominal pain. Symptoms have been ongoing for the past 3 days. Patient denies any fever or chills, denies any chest pain, denies any shortness of breath, no headache or dizziness and no diaphoresis. Patient admits that she drinks alcohol almost on a daily basis but she has not had any alcohol intake in about 2 days. She denies any withdrawal symptoms. Abdominal pain is more in the epigastric region. She denies any hematemesis, denies any hematochezia or bright red blood per rectum. Patient states she has had similar episodes in the past. Work-up in the emergency room today, lab reveals leukocytosis of 23, creatinine of 2.0, CO2 of less than 2, lactic acid of 3.7. Urinalysis reveals ketones of 4+. CT of the abdomen and pelvis reveals no acute findings. Patient being admitted for severe metabolic acidosis, ELISHA and abdominal pain. Past History Past Medical History: other (Pancreatitis) Past Surgical History: No surgical history Social history: smoking (Current daily smoker), alcohol abuse (Drinks alcohol daily) Family history: no significant family history 04/11: Patient seen and examined this morning clinically improved acute kidney i njury has resolved. Central line will be removed today. Due to nausea we will keep patient 1 additional day. We will start patient on, thiamine, vitamin B12 and for multivitamin. Again we retreated to the patient with counseling for 15 minutes on the importance of quitting alcohol and cocaine use. Patient self admitted to using cocaine. She denies ingesting any antifreeze. Anticipate discharge in 24 hours Acute pancreatitis secondary to EtOH Severe high anion gap metabolic acidosis Cocaine use/polysubstance abuse ELISHA-possibly prerenal Hypokalemia Anemia- chronic disease in a premenupausal patient Leukocytosis-possibly reactive Abdominal Pain, h/o Pancreatitis Alcohol use dependence and disorder Plan: Patient underwent HD 04/09 for correction of Hyperkalemia Continue supportive care Renal function improved, Counselling provided for 35 mins on importance of ETOH cessation Trial clear liquids today Replace Electrolytes as needed Ok to transfer to Telemetry History Interval history: Patient seen and examined this morning. Still with mild abdominal pain heart persistent nausea yesterday only able to tolerate oral water since this morning. Still feels nauseous. Hospitalist Physical - Physical exam Narrative exam: VITAL SIGNS: Reviewed. GENERAL: The patient appears normally developed, Vital signs as documented. HEAD: No signs of head trauma. EYES: Pupils are equal. Extraocular motions intact. EARS: Hearing grossly intact. MOUTH: Oropharynx is normal. NECK: No adenopathy, no JVD. CHEST: Chest with clear breath sounds bilaterally. No wheezes, rales, or rhonchi. CARDIAC: Regular rate and rhythm. S1 and S2, without murmurs, gallops, or rubs. VASCULAR: No Edema. Peripheral pulses normal and equal in all extremities. ABDOMEN: Soft, non tender and non distended. No rebound or guarding, and no masses palpated. Bowel Sounds normal. MUSCULOSKELETAL: Good range of motion of all major joints. Extremities without clubbing, cyanosis or edema. NEUROLOGIC EXAM: Alert and oriented x 3 No focal sensory or strength deficits. Speech normal. Follows commands. PSYCHIATRIC: Mood normal. SKIN: detail exam as documented in skin assessment right IJ paralysis - Constitutional Vitals: Temp Pulse Resp BP Pulse Ox 98.1 F 89 19 147/106 99 04/11/22 08:28 04/11/22 08:28 04/11/22 08:28 04/11/22 08:28 04/11/22 08:28 General appearance: Present: no acute distress, well-nourished, other (ill l ooking) Results - Labs CBC & Chem 7: 04/10/22 04:00 04/11/22 04:00 Labs: Laboratory Last Values WBC 6.8 K/mm3 (4.5-11.0) 04/10/22 04:00 RBC 2.57 M/mm3 (3.65-5.03) L 04/10/22 04:00 Hgb 8.4 gm/dl (10.1-14.3) L D 04/10/22 04:00 Hct 25.0 % (30.3-42.9) L D 04/10/22 04:00 MCV 98 fl (79-97) H 04/10/22 04:00 MCH 33 pg (28-32) H 04/10/22 04:00 MCHC 34 % (30-34) 04/10/22 04:00 RDW 13.5 % (13.2-15.2) 04/10/22 04:00 Plt Count 193 K/mm3 (140-440) 04/10/22 04:00 Lymph % (Auto) 21.8 % (13.4-35.0) 04/10/22 04:00 [place] % (Auto) 4.3 % (0.0-7.3) 04/10/22 04:00 Eos % (Auto) 0.2 % (0.0-4.3) 04/10/22 04:00 Baso % (Auto) 0.2 % (0.0-1.8) 04/10/22 04:00 Lymph # (Auto) 1.5 K/mm3 (1.2-5.4) 04/10/22 04:00 [place] # (Auto) 0.3 K/mm3 (0.0-0.8) 04/10/22 04:00 Eos # (Auto) 0.0 K/mm3 (0.0-0.4) 04/10/22 04:00 Baso # (Auto) 0.0 K/mm3 (0.0-0.1) 04/10/22 04:00 Add Manual Diff Complete 04/09/22 02:07 Total Counted 100 04/09/22 02:07 Seg Neutrophils % 73.5 % (40.0-70.0) H 04/10/22 04:00 Seg Neuts % (Manual) 99.0 % (40.0-70.0) H 04/09/22 02:07 Band Neutrophils % 0 % 04/09/22 02:07 Lymphocytes % (Manual) 1.0 % (13.4-35.0) L 04/09/22 02:07 Reactive Lymphs % (Man) 0 % 04/09/22 02:07 Monocytes % (Manual) 0 % (0.0-7.3) 04/09/22 02:07 Eosinophils % (Manual) 0 % (0.0-4.3) 04/09/22 02:07 Basophils % (Manual) 0 % (0.0-1.8) 04/09/22 02:07 Metamyelocytes % 0 % 04/09/22 02:07 Myelocytes % 0 % 04/09/22 02:07 Promyelocytes % 0 % 04/09/22 02:07 Blast Cells % 0 % 04/09/22 02:07 Nucleated RBC % Not Reportable 04/09/22 02:07 Seg Neutrophils # 5.0 K/mm3 (1.8-7.7) 04/10/22 04:00 Seg Neutrophils # Man 22.8 K/mm3 (1.8-7.7) H 04/09/22 02:07 Band Neutrophils # 0.0 K/mm3 04/09/22 02:07 Lymphocytes # (Manual) 0.2 K/mm3 (1.2-5.4) L 04/09/22 02:07 Abs React Lymphs (Man) 0.0 K/mm3 04/09/22 02:07 Monocytes # (Manual) 0.0 K/mm3 (0.0-0.8) 04/09/22 02:07 Eosinophils # (Manual) 0.0 K/mm3 (0.0-0.4) 04/09/22 02:07 Basophils # (Manual) 0.0 K/mm3 (0.0-0.1) 04/09/22 02:07 Metamyelocytes # 0.0 K/mm3 04/09/22 02:07 Myelocytes # 0.0 K/mm3 04/09/22 02:07 Promyelocytes # 0.0 K/mm3 04/09/22 02:07 Blast Cells # 0.0 K/mm3 04/09/22 02:07 WBC Morphology Not Reportable 04/09/22 02:07 Hypersegmented Neuts Not Reportable 04/09/22 02:07 Hyposegmented Neuts Not Reportable 04/09/22 02:07 Hypogranular Neuts Not Reportable 04/09/22 02:07 Smudge Cells Not Reportable 04/09/22 02:07 Toxic Granulation Not Reportable 04/09/22 02:07 Toxic Vacuolation Not Reportable 04/09/22 02:07 Dohle Bodies Not Reportable 04/09/22 02:07 Pelger-Huet Anomaly Not Reportable 04/09/22 02:07 Rashi Rods Not Reportable 04/09/22 02:07 Platelet Estimate Consistent w auto 04/09/22 02:07 Clumped Platelets Not Reportable 04/09/22 02:07 Plt Clumps, EDTA Not Reportable 04/09/22 02:07 Large Platelets Not Reportable 04/09/22 02:07 Giant Platelets Not Reportable 04/09/22 02:07 Platelet Satelliting Not Reportable 04/09/22 02:07 Plt Morphology Comment Not Reportable 04/09/22 02:07 RBC Morphology Not Reportable 04/09/22 02:07 Dimorphic RBCs Not Reportable 04/09/22 02:07 Polychromasia Not Reportable 04/09/22 02:07 Hypochromasia Not Reportable 04/09/22 02:07 Poikilocytosis Not Reportable 04/09/22 02:07 Anisocytosis Not Reportable 04/09/22 02:07 Microcytosis Not Reportable 04/09/22 02:07 Macrocytosis Not Reportable 04/09/22 02:07 Spherocytes Not Reportable 04/09/22 02:07 Pappenheimer Bodies Not Reportable 04/09/22 02:07 Sickle Cells Not Reportable 04/09/22 02:07 Target Cells Not Reportable 04/09/22 02:07 Tear Drop Cells Not Reportable 04/09/22 02:07 Ovalocytes Not Reportable 04/09/22 02:07 Helmet Cells Not Reportable 04/09/22 02:07 Louise-Whitlash Bodies Not Reportable 04/09/22 02:07 Topaz Rings Not Reportable 04/09/22 02:07 Armando Cells Not Reportable 04/09/22 02:07 Bite Cells Not Reportable 04/09/22 02:07 Crenated Cell Not Reportable 04/09/22 02:07 Elliptocytes Not Reportable 04/09/22 02:07 Acanthocytes (Spur) Not Reportable 04/09/22 02:07 Rouleaux Not Reportable 04/09/22 02:07 Hemoglobin C Crystals Not Reportable 04/09/22 02:07 Schistocytes Not Reportable 04/09/22 02:07 Malaria parasites Not Reportable 04/09/22 02:07 Jacques Bodies Not Reportable 04/09/22 02:07 Hem Pathologist Commnt No 04/09/22 02:07 ABG pH 7.514 pH Units (7.350-7.450) H 04/10/22 08:20 ABG pCO2 44.0 mm Hg 04/10/22 08:20 ABG pO2 82.3 mm Hg (80.0-90.0) 04/10/22 08:20 ABG HCO3 34.6 mmol/L (20.0-26.0) H 04/10/22 08:20 ABG O2 Saturation 97.1 % (95.0-99.0) 04/10/22 08:20 ABG O2 Content 11.1 (0.0-44) 04/10/22 08:20 ABG Base Excess 10.7 mmol/L (-2.0-3.0) H 04/10/22 08:20 ABG Hemoglobin 8.2 gm/dl (12.0-16.0) L 04/10/22 08:20 ABG Carboxyhemoglobin 1.4 % (0.0-5.0) 04/10/22 08:20 ABG Methemoglobin 0.5 % (0.0-1.5) 04/10/22 08:20 Oxyhemoglobin 95.3 % (95.0-99.0) 04/10/22 08:20 FiO2 21 % 04/10/22 08:20 Sodium 138 mmol/L (137-145) 04/11/22 04:00 Potassium 3.0 mmol/L (3.6-5.0) L 04/11/22 04:00 Chloride 93.3 mmol/L (98-107) L 04/11/22 04:00 Carbon Dioxide 30 mmol/L (22-30) 04/11/22 04:00 Anion Gap 18 mmol/L 04/11/22 04:00 BUN 4 mg/dL (7-17) L 04/11/22 04:00 Creatinine 0.8 mg/dL (0.6-1.2) 04/11/22 04:00 Estimated GFR > 60 ml/min 04/11/22 04:00 BUN/Creatinine Ratio 5 % 04/11/22 04:00 Glucose 107 mg/dL (65-100) H 04/11/22 04:00 Osmolality 318 Mosm/kg 04/09/22 11:02 Lactic Acid 1.40 mmol/L (0.7-2.0) 04/09/22 11:02 Calcium 8.5 mg/dL (8.4-10.2) 04/11/22 04:00 Phosphorus 2.10 mg/dL (2.5-4.5) L D 04/11/22 04:00 Magnesium 1.90 mg/dL (1.7-2.3) 04/11/22 04:00 Total Bilirubin 0.30 mg/dL (0.1-1.2) 04/11/22 04:00 AST 30 units/L (5-40) 04/11/22 04:00 ALT 13 units/L (7-56) 04/11/22 04:00 Alkaline Phosphatase 81 units/L (35-129) 04/11/22 04:00 Total Creatine Kinase 328 units/L (30-135) H 04/09/22 11:02 Total Protein 6.1 g/dL (6.3-8.2) L D 04/11/22 04:00 Albumin 3.9 g/dL (3.9-5) 04/11/22 04:00 Albumin/Globulin Ratio 1.8 % 04/11/22 04:00 Lipase 105 units/L (13-60) H 04/10/22 14:45 TSH 0.534 mlU/mL (0.270-4.200) 04/09/22 05:01 Free T4 0.82 ng/dL (0.76-1.46) 04/09/22 05:01 HCG, Quant 1.00 mIU/mL (0-4) 04/09/22 05:01 Urine Color Colorless (Yellow) 04/09/22 Unknown Urine Turbidity Clear (Clear) 04/09/22 Unknown Specific [place] (Man) 1.025 (1.003-1.030) 04/09/22 Unknown Ur Protein (Man) 2+ mg/dL (Negative) 04/09/22 Unknown Ur Ketones (Man) 4+ (Negative) 04/09/22 Unknown Ur Nitrite (Man) Negative (Negative) 04/09/22 Unknown Urine Bilirubin (Man) Negative (Negative) 04/09/22 Unknown Leukocyte Esterase (Man) Negative (Negative) 04/09/22 Unknown Urine WBC (Auto) 1.0 /HPF (0.0-6.0) 04/09/22 Unknown Urine RBC (Auto) 1.0 /HPF (0.0-6.0) 04/09/22 Unknown U Epithel Cells (Auto) 1.0 /HPF (0-13.0) 04/09/22 Unknown Urine RBC (Manual) Trace (Negative) 04/09/22 Unknown Urine Mucus Few /HPF 04/09/22 Unknown Urine Creatinine 61.2 mg/dL (0.1-20.0) H 04/10/22 07:30 Urine HCG, Qual Negative (Negative) 04/09/22 Unknown Salicylates < 0.3 mg/dL (2.8-20.0) L 04/09/22 05:01 Acetaminophen 5.0 ug/mL (10.0-30.0) L 04/09/22 05:01 Plasma/Serum Alcohol < 0.01 % (0-0.07) 04/09/22 05:01 Hepatitis A IgM Ab Non-reactive (NonReactive) 04/09/22 13:18 Hep Bs Antigen Non-reactive (Negative) 04/09/22 13:18 Hep B Core IgM Ab Non-reactive (NonReactive) 04/09/22 13:18 Hepatitis C Antibody Non-reactive (NonReactive) 04/09/22 13:18 Microbiology: Microbiology 04/09/22 05:01 Peripheral/Venous Blood Culture - Preliminary NO GROWTH AFTER 48 HOURS 04/09/22 04:03 Peripheral/Venous Blood Culture - Preliminary NO GROWTH AFTER 48 HOURS [place]/IV: Voiding Method Toilet Active Medications - Current Medications Current Medications: Generic Name Dose Route Start Last Admin Trade Name Freq PRN Reason Stop Dose Admin Acetaminophen 650 mg 04/09/22 04:30 Acetaminophen 325 Mg Tab PO Q6H PRN Pain MILD(1-3)/Fever >100.5/CARL Chlordiazepoxide HCl 50 mg 04/09/22 04:06 Chlordiazepoxide 25 Mg Cap PO Q1HR PRN CIWA-Ar 8-15 Heparin Sodium (Porcine) 5,000 unit 04/09/22 06:00 04/11/22 06:46 Heparin 5,000 Unit/1 Ml Vial SUB-Q 5,000 unit Q8HR TOREY Administration Sodium Chloride 100 mls @ 999 mls/hr 04/09/22 11:30 Nacl 0.9% IV EDELMIRA PRN Hypotension Potassium Chloride 10 meq in 100 mls @ 100 mls/hr 04/11/22 09:00 Kcl 10meq/100ml IV 04/11/22 10:59 Q1H TOREY Lorazepam 2 mg 04/09/22 04:06 Lorazepam 2 Mg/Ml Vial IV Q1HR PRN CIWA-Ar 8-15 Lorazepam 4 mg 04/09/22 04:06 Lorazepam 2 Mg/Ml Vial IV Q1HR PRN CIWA-Ar 16-25 Lorazepam 4 mg 04/09/22 04:06 Lorazepam 2 Mg/Ml Vial IV Q15MIN PRN CIWA-Ar >25 Morphine Sulfate 2 mg 04/09/22 04:30 04/11/22 10:47 Morphine 2 Mg/1 Ml Inj IV 2 mg Q4H PRN Administration Pain, Moderate (4-6) Ondansetron HCl 4 mg 04/09/22 04:30 04/09/22 20:38 Ondansetron 4 Mg/2 Ml Inj IV 4 mg Q8H PRN Administration Nausea And Vomiting Pantoprazole Sodium 40 mg 04/09/22 07:30 04/11/22 10:47 Pantoprazole 40 Mg Tab PO 40 mg QDAC TOREY Administration Sodium Chloride 10 ml 04/09/22 10:00 04/11/22 10:47 Sodium Chloride 0.9% 10 Ml Flush Syringe IV 10 ml BID TOREY Administration Sodium Chloride 10 ml 04/09/22 04:30 Sodium Chloride 0.9% 10 Ml Flush Syringe IV PRN PRN LINE FLUSH
--- NOTE | 2022-04-11 11:55 | Progress Note ---
Assessment and Plan 36-year-old -Greenlandic female with known history of pancreatitis, history of alcohol abuse presenting to the emergency room today complaining of nausea and vomiting. Patient has also had associated abdominal pain. Symptoms have been ongoing for the past 3 days. Patient denies any fever or chills, denies any chest pain, denies any shortness of breath, no headache or dizziness and no diaphoresis. Patient admits that she drinks alcohol almost on a daily basis but she has not had any alcohol intake in about 2 days. She denies any withdrawal symptoms. Abdominal pain is more in the epigastric region. She denies any hematemesis, denies any hematochezia or bright red blood per rectum. Patient states she has had similar episodes in the past. Work-up in the emergency room , lab reveals leukocytosis of 23, creatinine of 2.0, CO2 of less than 2, lactic acid of 3.7. Urinalysis reveals ketones of 4+. CT of the abdomen and pelvis reveals no acute findings. Patient being admitted for severe metabolic acidosis, ELISHA and abdominal pain. Patient has history of alcohol abuse, she drinks alcohol daily. Denies drug abuse. Patient denies tobacco use. According to the chart, patient is current daily smoker. Works in [employer]. Not and has two children. Patient awake, Complaining abdominal pain. Patient is on room air. O2 saturation 98%. Patient also complaining chest pain, shortness of breath and cough. But no acute respiratory distress at rest. Patient afebrile, No leukocytosis , Blood pressure 155/105 , Pulse 77 , respirations 16. Chest xray done 04/09/22 reported No acute findings. Patient is on I/V fluids, S/C Heparin, Protonix. Recommend Albuterol inhaler 2 puffs po q 6 hours prn for shortness of breath. Patient was seen in telemetry unit. I spent critical care time of 35 minutes obtaining history, review the chart, examine the patient, review lab results, chest xray, talking to the nursing staff and work up plan of treatment in this critically ill patient. - Patient Problems (1) Acute abdominal pain Current Visit: Yes Status: Acute Plan to address problem: Management as per primary care , GI specialists and surgery. (2) Metabolic acidosis Current Visit: Yes Status: Acute Plan to address problem: Improving. To days anion gap 18. Metabolic acidosis likely from alcoholic Ketoacidosis. (3) Alcohol abuse Current Visit: Yes Status: Acute Plan to address problem: Patient is on I/V fluids, Librium and I/V ativan. Management as per primary care. (4) Pancreatitis, alcoholic, acute Current Visit: Yes Status: Acute Plan to address problem: Management as per primary care. (5) Polysubstance abuse Current Visit: Yes Status: Acute Plan to address problem: Management as per primary care. Subjective Date of service: 04/11/22 Principal diagnosis: HAGMA; ELISHA; Leukocytosis; Abdominal Pain; h/o Pancreatitis; ETOH abuse Interval history: 36-year-old -Green[place]ic female with known history of pancreatitis, history of alcohol abuse presenting to the emergency room today complaining of nausea and vomiting. Patient has also had associated abdominal pain. Symptoms have been ongoing for the past 3 days. Patient denies any fever or chills, denies any chest pain, denies any shortness of breath, no headache or dizziness and no diaphoresis. Patient admits that she drinks alcohol almost on a daily basis but she has not had any alcohol intake in about 2 days. She denies any withdrawal symptoms. Abdominal pain is more in the epigastric region. She denies any hematemesis, denies any hematochezia or bright red blood per rectum. Patient states she has had similar episodes in the past. Work-up in the emergency room , lab reveals leukocytosis of 23, creatinine of 2.0, CO2 of less than 2, lactic acid of 3.7. Urinalysis reveals ketones of 4+. CT of the abdomen and pelvis reveals no acute findings. Patient being admitted for severe metabolic acidosis, ELISHA and abdominal pain. Patient has history of alcohol abuse, she drinks alcohol daily. Denies drug abuse. Patient denies tobacco use. According to the chart, patient is current daily smoker. Works in [employer]. Not and has two children. Patient awake, Complaining abdominal pain. Patient is on room air. O2 saturation 98%. Patient also complaining chest pain, shortness of breath and cough. But no acute respiratory distress at rest. Patient afebrile, No leukocytosis , Blood pressure 155/105 , Pulse 77 , respirations 16. Chest xray done 04/09/22 reported No acute findings. Patient is on I/V fluids, S/C Heparin, Protonix. Recommend Albuterol inhaler 2 puffs po q 6 hours prn for shortness of breath. Objective Vital Signs - 12hr 04/11/22 04/11/22 03:59 08:28 Temperature 97.7 F 98.1 F Pulse Rate 81 89 Respiratory 16 19 Rate Blood Pressure 151/104 147/106 O2 Sat by Pulse 98 99 Oximetry Constitutional: no acute distress, alert, other (Appears tired. Complaining abdominal pain.) Eyes: non-icteric ENT: oropharynx moist Neck: supple, no lymphadenopathy, no JVD Effort: normal Ascultation: Bilateral: diminished breath sounds Percussion: Bilateral: not dull Cardiovascular: regular rate and rhythm Gastrointestinal: hypoactive bowel sounds, tender, non-distended Integumentary: normal Extremities: no cyanosis, no edema, pulses normal, no ischemia or petechiae Neurologic: normal mental status, non-focal exam, pupils equal and round, CN II- XII normal Psychiatric: anxious CBC and BMP: 04/10/22 04:00 04/11/22 04:00 ABG, PT/INR, D-dimer: ABG ABG pH 7.514 pH Units (7.350-7.450) H 04/10/22 08:20 ABG pCO2 44.0 mm Hg 04/10/22 08:20 ABG pO2 82.3 mm Hg (80.0-90.0) 04/10/22 08:20 ABG O2 Saturation 97.1 % (95.0-99.0) 04/10/22 08:20 Abnormal lab findings: Abnormal Labs 04/09/22 04/09/22 04/09/22 02:07 02:07 04:03 WBC 23.0 H RBC Hgb Hct MCV 101 H MCH Seg Neutrophils % Seg Neuts % (Manual) 99.0 H Lymphocytes % (Manual) 1.0 L Seg Neutrophils # Man 22.8 H Lymphocytes # (Manual) 0.2 L ABG pH ABG pO2 ABG HCO3 ABG Base Excess ABG Hemoglobin Potassium Chloride 87.1 L Carbon Dioxide < 2.0 L* BUN Creatinine 2.0 H Glucose 125 H Lactic Acid 3.70 H* Calcium Phosphorus Magnesium AST 53 H Total Creatine Kinase Total Protein 9.2 H Albumin 5.6 H Lipase 77 H Urine Creatinine Salicylates Acetaminophen 04/09/22 04/09/22 04/09/22 05:01 05:01 05:01 WBC RBC Hgb Hct MCV MCH Seg Neutrophils % Seg Neuts % (Manual) Lymphocytes % (Manual) Seg Neutrophils # Man Lymphocytes # (Manual) ABG pH ABG pO2 ABG HCO3 ABG Base Excess ABG Hemoglobin Potassium Chloride Carbon Dioxide BUN Creatinine Glucose Lactic Acid Calcium Phosphorus Magnesium 1.20 L AST Total Creatine Kinase Total Protein Albumin Lipase Urine Creatinine Salicylates < 0.3 L Acetaminophen 5.0 L 04/09/22 04/09/22 04/09/22 11:02 11:02 11:32 WBC RBC Hgb Hct MCV MCH Seg Neutrophils % Seg Neuts % (Manual) Lymphocytes % (Manual) Seg Neutrophils # Man Lymphocytes # (Manual) ABG pH ABG pO2 124.0 H ABG HCO3 9.4 L ABG Base Excess -13.8 L ABG Hemoglobin 9.6 L Potassium Chloride Carbon Dioxide 4 L* BUN Creatinine 2.0 H Glucose 146 H Lactic Acid Calcium 8.1 L D Phosphorus Magnesium 1.20 L AST Total Creatine Kinase 328 H Total Protein Albumin Lipase Urine Creatinine Salicylates Acetaminophen 04/10/22 04/10/22 04/10/22 00:02 04:00 04:00 WBC RBC 2.57 L Hgb 8.4 L D Hct 25.0 L D MCV 98 H MCH 33 H Seg Neutrophils % 73.5 H Seg Neuts % (Manual) Lymphocytes % (Manual) Seg Neutrophils # Man Lymphocytes # (Manual) ABG pH ABG pO2 ABG HCO3 ABG Base Excess ABG Hemoglobin Potassium 3.3 L D 3.4 L Chloride 95.0 L 91.8 L Carbon Dioxide 33 H BUN 5 L 5 L Creatinine Glucose Lactic Acid Calcium 7.8 L 7.4 L Phosphorus 0.70 L* D Magnesium 1.20 L AST Total Creatine Kinase Total Protein Albumin Lipase Urine Creatinine Salicylates Acetaminophen 04/10/22 04/10/22 04/10/22 07:30 08:20 14:45 WBC RBC Hgb Hct MCV MCH Seg Neutrophils % Seg Neuts % (Manual) Lymphocytes % (Manual) Seg Neutrophils # Man Lymphocytes # (Manual) ABG pH 7.514 H ABG pO2 ABG HCO3 34.6 H ABG Base Excess 10.7 H ABG Hemoglobin 8.2 L Potassium Chloride Carbon Dioxide BUN Creatinine Glucose Lactic Acid Calcium Phosphorus Magnesium AST Total Creatine Kinase Total Protein Albumin Lipase 105 H Urine Creatinine 61.2 H Salicylates Acetaminophen 04/11/22 04:00 WBC RBC Hgb Hct MCV MCH Seg Neutrophils % Seg Neuts % (Manual) Lymphocytes % (Manual) Seg Neutrophils # Man Lymphocytes # (Manual) ABG pH ABG pO2 ABG HCO3 ABG Base Excess ABG Hemoglobin Potassium 3.0 L Chloride 93.3 L Carbon Dioxide BUN 4 L Creatinine Glucose 107 H Lactic Acid Calcium Phosphorus 2.10 L D Magnesium AST Total Creatine Kinase Total Protein 6.1 L D Albumin Lipase Urine Creatinine Salicylates Acetaminophen Chest x-ray: report reviewed, image reviewed Additional Studies: CHEST 1 VIEW 04/09/2022 3:21 PM INDICATION / CLINICAL INFORMATION: RIj Vascath placement.. COMPARISON: None available. FINDINGS: SUPPORT DEVICES: Right IJ CVL tip projects over the superior cavoatrial junction. HEART / MEDIASTINUM: No significant abnormality. LUNGS / PLEURA: No significant pulmonary or pleural abnormality. No pneumothorax. ADDITIONAL FINDINGS: No significant additional findings. IMPRESSION: 1. No acute findings. CT ABDOMEN AND PELVIS WITHOUT CONTRAST 04/09/22 INDICATION / CLINICAL INFORMATION: Acute abdominal pain, with nausea and. TECHNIQUE: Axial CT images were obtained through the abdomen and pelvis without IV contrast. All CT scans at this location are performed using CT dose reduction for ALARA by means of automated exposure control. COMPARISON: None available. FINDINGS: LOWER CHEST: No significant abnormality of the imaged chest. LIVER: Hepatomegaly. Low-attenuation compatible with hepatic steatosis. GALLBLADDER / BILE DUCTS: Gallbladder sludge without inflammatory changes. Biliary ducts grossly unremarkable. SPLEEN: No significant abnormality. PANCREAS: No significant abnormality. ADRENALS: No significant abnormality. KIDNEYS/URETERS: No stones or hydronephrosis. No solid renal lesion. STOMACH / DUODENUM / SMALL BOWEL: The stomach, duodenum, and small bowel dem onstrate no significant abnormality. No specific abnormality of the mesentery demonstrated. COLON: The large bowel is not well distended. The cecum and ascending colon demonstrate similar pattern of submucosal hypoattenuation that could reflect sequelae of prior colitis. No inflammatory stranding is present. APPENDIX: No significant abnormality. PERITONEUM: No free air or free fluid are present within the abdomen or pelvis. LYMPH NODES: No significant adenopathy. AORTA / ARTERIES: No significant abnormality. IVC / VEINS: No significant abnormality. URINARY BLADDER: No significant abnormality. REPRODUCTIVE ORGANS: No significant abnormality. SKELETAL SYSTEM: No significant abnormality. ADDITIONAL ABDOMINAL/PELVIC FINDINGS: None. IMPRESSION: 1. No imaging findings to suggest etiology of the provided symptoms. Nonacute findings as detailed. Allied health notes reviewed: nursing
[2022-04-11 13:46] LABS: Protein/Creatinine Ratio,Urine 0.28
[2022-04-11] MEDS: CYANOCOBALAMIN (VIT B-12) 1000 MCG TAB PO SCH (15:48)
[2022-04-11] MEDS: MULTIVITAMINS ,THERAPEUTIC TAB PO SCH (15:48)
[2022-04-11] MEDS: amLODIPine 5 MG TAB PO SCH (15:48)
[2022-04-11] MEDS: THIAMINE 100 MG TAB PO SCH (15:54)
[2022-04-11] MEDS: POTASSIUM CHLORIDE 10 MEQ 10 MEQ/100 ML BAG IV SCH ×2 (19:32→19:33)
[2022-04-12] MEDS: HEPARIN 5,000 UNIT/1 ML VIAL SUB-Q SCH ×2 (06:26→15:00)
[2022-04-12] MEDS: ONDANSETRON 4 MG/2 ML INJ IV PRN ×2 (06:39→10:45)
[2022-04-12] MEDS: MORPHINE 2 MG/1 ML INJ IV PRN ×2 (06:39→10:45)
--- NOTE | 2022-04-12 08:13 | Progress Note ---
Assessment and Plan 36-year-old -[place] female with known history of pancreatitis, history of alcohol abuse presenting to the emergency room today complaining of nausea and vomiting. Patient has also had associated abdominal pain. Symptoms have been ongoing for the past 3 days. Patient denies any fever or chills, denies any chest pain, denies any shortness of breath, no headache or dizziness and no diaphoresis. Patient admits that she drinks alcohol almost on a daily basis but she has not had any alcohol intake in about 2 days. She denies any withdrawal symptoms. Abdominal pain is more in the epigastric region. She denies any hematemesis, denies any hematochezia or bright red blood per rectum. Patient states she has had similar episodes in the past. Work-up in the emergency room , lab reveals leukocytosis of 23, creatinine of 2.0, CO2 of less than 2, lactic acid of 3.7. Urinalysis reveals ketones of 4+. CT of the abdomen and pelvis reveals no acute findings. Patient being admitted for severe metabolic acidosis, ELISHA and abdominal pain. Patient has history of alcohol abuse, she drinks alcohol daily. Denies drug abuse. Patient denies tobacco use. According to the chart, patient is current daily smoker. Works in [place]. Not and has two children. Patient awake, Patient says feeling better. Patient is on room air. O2 saturation 98%. No complaint of chest pain, shortness of breath and cough. But no acute respiratory distress at rest. Says has some difficulty in swallowing. Patient afebrile, No leukocytosis , Blood pressure 164/112 , Pulse 77 , respirations 20. Chest xray done 04/09/22 reported No acute findings. Patient is on I/V fluids, S/C Heparin, Protonix. Recommend Albuterol inhaler 2 puffs po q 6 hours prn for shortness of breath. - Patient Problems (1) Acute abdominal pain Status: Acute Plan to address problem: Management as per primary care , GI specialists and surgery. (2) Metabolic acidosis Status: Acute Plan to address problem: Improving. Recent anion gap 18. Metabolic acidosis likely from alcoholic Ketoacidosis. (3) Alcohol abuse Status: Acute Plan to address problem: Patient is on I/V fluids, Librium and I/V ativan. Management as per primary care. (4) Pancreatitis, alcoholic, acute Status: Acute Plan to address problem: Management as per primary care. (5) Polysubstance abuse Status: Acute Plan to address problem: Management as per primary care. Subjective Date of service: 04/12/22 Principal diagnosis: HAGMA; ELISHA; Leukocytosis; Abdominal Pain; h/o Pancreatitis; ETOH abuse Interval history: 36-year-old -[place] female with known history of pancreatitis, history of alcohol abuse presenting to the emergency room today complaining of nausea and vomiting. Patient has also had associated abdominal pain. Symptoms have been ongoing for the past 3 days. Patient denies any fever or chills, denies any chest pain, denies any shortness of breath, no headache or dizziness and no diaphoresis. Patient admits that she drinks alcohol almost on a daily basis but she has not had any alcohol intake in about 2 days. She denies any withdrawal symptoms. Abdominal pain is more in the epigastric region. She denies any hematemesis, denies any hematochezia or bright red blood per rectum. Patient states she has had similar episodes in the past. Work-up in the emergency room , lab reveals leukocytosis of 23, creatinine of 2.0, CO2 of less than 2, lactic acid of 3.7. Urinalysis reveals ketones of 4+. CT of the abdomen and pelvis reveals no acute findings. Patient being admitted for severe metabolic acidosis, ELISHA and abdominal pain. Patient has history of alcohol abuse, she drinks alcohol daily. Denies drug ab use. Patient denies tobacco use. According to the chart, patient is current daily smoker. Works in [place]. Not and has two children. Patient awake, Patient says feeling better. Patient is on room air. O2 saturation 98%. No complaint of chest pain, shortness of breath and cough. But no acute respiratory distress at rest. Says has some difficulty in swallowing. Patient afebrile, No leukocytosis , Blood pressure 164/112 , Pulse 77 , respirations 20. Chest xray done 04/09/22 reported No acute findings. Patient is on I/V fluids, S/C Heparin, Protonix. Recommend Albuterol inhaler 2 puffs po q 6 hours prn for shortness of breath. Objective Vital Signs - 12hr 04/11/22 04/11/22 04/12/22 22:00 23:29 03:23 Temperature 98.4 F 98.5 F Pulse Rate 99 H 83 Respiratory 16 16 Rate Blood Pressure 143/98 152/104 O2 Sat by Pulse 98 99 97 Oximetry Constitutional: no acute distress, alert Eyes: non-icteric ENT: oropharynx moist Neck: supple, no lymphadenopathy, no JVD Effort: normal Ascultation: Bilateral: diminished breath sounds Percussion: Bilateral: not dull Cardiovascular: regular rate and rhythm Gastrointestinal: normoactive bowel sounds, hypoactive bowel sounds, soft, non-d istended Integumentary: normal Extremities: no cyanosis, no edema, pulses normal, no ischemia or petechiae Neurologic: normal mental status, non-focal exam, pupils equal and round, CN II- XII normal Psychiatric: mood appropriate CBC and BMP: 04/10/22 04:00 04/11/22 04:00 ABG, PT/INR, D-dimer: ABG ABG pH 7.514 pH Units (7.350-7.450) H 04/10/22 08:20 ABG pCO2 44.0 mm Hg 04/10/22 08:20 ABG pO2 82.3 mm Hg (80.0-90.0) 04/10/22 08:20 ABG O2 Saturation 97.1 % (95.0-99.0) 04/10/22 08:20 Abnormal lab findings: Abnormal Labs 04/09/22 04/09/22 04/09/22 02:07 02:07 04:03 WBC 23.0 H RBC Hgb Hct MCV 101 H MCH Seg Neutrophils % Seg Neuts % (Manual) 99.0 H Lymphocytes % (Manual) 1.0 L Seg Neutrophils # Man 22.8 H Lymphocytes # (Manual) 0.2 L ABG pH ABG pO2 ABG HCO3 ABG Base Excess ABG Hemoglobin Potassium Chloride 87.1 L Carbon Dioxide < 2.0 L* BUN Creatinine 2.0 H Glucose 125 H Lactic Acid 3.70 H* Calcium Phosphorus Magnesium AST 53 H Total Creatine Kinase Total Protein 9.2 H Albumin 5.6 H Lipase 77 H Urine Creatinine Urine Total Protein Salicylates Acetaminophen 04/09/22 04/09/22 04/09/22 05:01 05:01 05:01 WBC RBC Hgb Hct MCV MCH Seg Neutrophils % Seg Neuts % (Manual) Lymphocytes % (Manual) Seg Neutrophils # Man Lymphocytes # (Manual) ABG pH ABG pO2 ABG HCO3 ABG Base Excess ABG Hemoglobin Potassium Chloride Carbon Dioxide BUN Creatinine Glucose Lactic Acid Calcium Phosphorus Magnesium 1.20 L AST Total Creatine Kinase Total Protein Albumin Lipase Urine Creatinine Urine Total Protein Salicylates < 0.3 L Acetaminophen 5.0 L 04/09/22 04/09/22 04/09/22 11:02 11:02 11:32 WBC RBC Hgb Hct MCV MCH Seg Neutrophils % Seg Neuts % (Manual) Lymphocytes % (Manual) Seg Neutrophils # Man Lymphocytes # (Manual) ABG pH ABG pO2 124.0 H ABG HCO3 9.4 L ABG Base Excess -13.8 L ABG Hemoglobin 9.6 L Potassium Chloride Carbon Dioxide 4 L* BUN Creatinine 2.0 H Glucose 146 H Lactic Acid Calcium 8.1 L D Phosphorus Magnesium 1.20 L AST Total Creatine Kinase 328 H Total Protein Albumin Lipase Urine Creatinine Urine Total Protein Salicylates Acetaminophen 04/10/22 04/10/22 04/10/22 00:02 04:00 04:00 WBC RBC 2.57 L Hgb 8.4 L D Hct 25.0 L D MCV 98 H MCH 33 H Seg Neutrophils % 73.5 H Seg Neuts % (Manual) Lymphocytes % (Manual) Seg Neutrophils # Man Lymphocytes # (Manual) ABG pH ABG pO2 ABG HCO3 ABG Base Excess ABG Hemoglobin Potassium 3.3 L D 3.4 L Chloride 95.0 L 91.8 L Carbon Dioxide 33 H BUN 5 L 5 L Creatinine Glucose Lactic Acid Calcium 7.8 L 7.4 L Phosphorus 0.70 L* D Magnesium 1.20 L AST Total Creatine Kinase Total Protein Albumin Lipase Urine Creatinine Urine Total Protein Salicylates Acetaminophen 04/10/22 04/10/22 04/10/22 07:30 08:20 14:45 WBC RBC Hgb Hct MCV MCH Seg Neutrophils % Seg Neuts % (Manual) Lymphocytes % (Manual) Seg Neutrophils # Man Lymphocytes # (Manual) ABG pH 7.514 H ABG pO2 ABG HCO3 34.6 H ABG Base Excess 10.7 H ABG Hemoglobin 8.2 L Potassium Chloride Carbon Dioxide BUN Creatinine Glucose Lactic Acid Calcium Phosphorus Magnesium AST Total Creatine Kinase Total Protein Albumin Lipase 105 H Urine Creatinine 61.2 H Urine Total Protein 17 H Salicylates Acetaminophen 04/11/22 04:00 WBC RBC Hgb Hct MCV MCH Seg Neutrophils % Seg Neuts % (Manual) Lymphocytes % (Manual) Seg Neutrophils # Man Lymphocytes # (Manual) ABG pH ABG pO2 ABG HCO3 ABG Base Excess ABG Hemoglobin Potassium 3.0 L Chloride 93.3 L Carbon Dioxide BUN 4 L Creatinine Glucose 107 H Lactic Acid Calcium Phosphorus 2.10 L D Magnesium AST Total Creatine Kinase Total Protein 6.1 L D Albumin Lipase Urine Creatinine Urine Total Protein Salicylates Acetaminophen Allied health notes reviewed: nursing
--- NOTE | 2022-04-12 08:14 | Discharge Summary ---
Providers - Providers Date of Admission: 04/09/22 04:31 Attending physician: ROD BERRY MD 04/09/22 06:02 Consult to Physician [CONS] Routine Comment: Consulting Provider: MIGUEL CONNOR Physician Instructions: Reason For Exam: ELISHA 04/09/22 12:07 Consult to Physician [CONS] Routine Comment: Consulting Provider: ANA LUISA SIFUENTES Physician Instructions: Reason For Exam: SEVERE ACIDOSIS Primary care physician: [employer] Hospitalization Reason for admission: Acute pancreatitis Condition: Stable Hospital course: 36-year-old -[place] female with known history of pancreatitis, history of alcohol abuse presenting to the emergency room today complaining of nausea and vomiting. Patient has also had associated abdominal pain. Symptoms have been ongoing for the past 3 days. Patient denies any fever or chills, denies any chest pain, denies any shortness of breath, no headache or dizziness and no diaphoresis. Patient admits that she drinks alcohol almost on a daily basis but she has not had any alcohol intake in about 2 days. She denies any withdrawal symptoms. Abdominal pain is more in the epigastric region. She denies any hematemesis, denies any hematochezia or bright red blood per rectum. Patient states she has had similar episodes in the past. Work-up in the emergency room today, lab reveals leukocytosis of 23, creatinine of 2.0, CO2 of less than 2, lactic acid of 3.7. Urinalysis reveals ketones of 4+. CT of the abdomen and pelvis reveals no acute findings. Patient being admitted for severe metabolic acidosis, ELISHA and abdominal pain. Past History Past Medical History: other (Pancreatitis) Past Surgical History: No surgical history Social history: smoking (Current daily smoker), alcohol abuse (Drinks alcohol daily) Family history: no significant family history 04/11: Patient seen and examined this morning clinically improved acute kidney injury has resolved. Central line will be removed today. Due to nausea we will keep patient 1 additional day. We will start patient on, thiamine, vitamin B12 and for multivitamin. Again we retreated to the patient with counseling for 15 minutes on the importance of quitting alcohol and cocaine use. Patient self admitted to using cocaine. She denies ingesting any antifreeze. Anticipate discharge in 24 hours 04/12: Patient seen and examined this morning tolerating full liquid diet. No n ew complaints overnight. She did have replacement of potassium with yesterday. She still has neck central line which have discussed with nursing staff to ensure that she wants prior to discharge. I did provide 50 minutes additional counseling on the importance of cessation of substance abuse with the patient verbalized understanding. She is clinically stable for discharge today also recommended following up with her primary care physician Acute pancreatitis secondary to EtOH Severe high anion gap metabolic acidosis Cocaine use/polysubstance abuse ELISHA-possibly prerenal Hypokalemia Anemia- chronic disease in a premenupausal patient Leukocytosis-possibly reactive Abdominal Pain, h/o Pancreatitis Alcohol use dependence and disorder Disposition: HOME / SELF CARE / HOMELESS Final Discharge Diagnosis (Prints w/discharge instructions): Acute pancreatitis secondary to EtOH. Severe high anion gap metabolic acidosis. Cocaine use/polysubstance abuse. ELISHA-possibly prerenal. Hypokalemia. Anemia- chronic disease in a premenupausal patient. Leukocytosis-possibly reactive. Abdominal Pain, h/o Pancreatitis. Alcohol use dependence and disorder Time spent for discharge: 35 minutes Core Measure Documentation - Palliative Care Palliative Care/ Comfort Measures: Not Applicable - Core Measures Any of the following diagnoses?: none Exam - Physical Exam Narrative exam: VITAL SIGNS: Reviewed. GENERAL: The patient appears normally developed, Vital signs as documented. HEAD: No signs of head trauma. EYES: Pupils are equal. Extraocular motions intact. EARS: Hearing grossly intact. MOUTH: Oropharynx is normal. NECK: No adenopathy, no JVD. CHEST: Chest with clear breath sounds bilaterally. No wheezes, rales, or rhonchi. CARDIAC: Regular rate and rhythm. S1 and S2, without murmurs, gallops, or rubs. VASCULAR: No Edema. Peripheral pulses normal and equal in all extremities. ABDOMEN: Soft, non tender and non distended. No rebound or guarding, and no masses palpated. Bowel Sounds normal. MUSCULOSKELETAL: Good range of motion of all major joints. Extremities without clubbing, cyanosis or edema. NEUROLOGIC EXAM: Alert and oriented x 3 No focal sensory or strength deficits. Speech normal. Follows commands. PSYCHIATRIC: Mood normal. SKIN: detail exam as documented in skin assessment right IJ paralysis - Constitutional Vitals: Temp Pulse Resp BP Pulse Ox 98.5 F 83 16 152/104 97 04/12/22 03:23 04/12/22 03:23 04/12/22 03:23 04/12/22 03:23 04/12/22 03:23 Plan Activity: advance as tolerated, fall precautions Diet: other (Full liquid diet for the next 2 to 3 days before slowly advance) Special Instructions: record daily weights, record daily BP diary, record blood sugar diary, smoking cessation, other (Alcohol cessation) Follow up with: [facility] [Referring] - 7 Days Prescriptions: amLODIPine 5 mg PO DAILY #30 tab Multivitamin Tab [Multiple Vitamin TAB (Theragran)] 1 each PO QDAY #30 tablet Pantoprazole [Protonix TAB] 40 mg PO QDAC #30 tablet Thiamine [Vitamin B-1] 100 mg PO QDAY #30 tablet Cyanocobalamin [Vitamin B-12] 1,000 mcg PO QDAY #30 tablet
[2022-04-12] MEDS: THIAMINE 100 MG TAB PO SCH (09:12)
[2022-04-12] MEDS: amLODIPine 5 MG TAB PO SCH (09:12)
[2022-04-12] MEDS: CYANOCOBALAMIN (VIT B-12) 1000 MCG TAB PO SCH (09:13)
[2022-04-12] MEDS: MULTIVITAMINS ,THERAPEUTIC TAB PO SCH (09:13)
[2022-04-12] MEDS: PANTOPRAZOLE 40 MG TAB PO SCH (09:13)
[2022-04-12] MEDS ORDERED: hydrALAZINE 20 MG/1 ML INJ IV PRN (11:30)
[2022-04-12] MEDS ORDERED: hydroCHLOROthiazide 25 MG TAB PO SCH (11:30)
[2022-04-12 13:18] VITALS: BP 156/100
== END 2022-04-12 16:00 | disposition home or self-care (01) | DRG 682 ==
LOC: ED 19:12 → IMCU 04-09 04:31 → 3A 04-09 10:19 → CC1 04-09 11:45 → 4A 04-10 15:19
PROVIDERS: ADMIT Internal Medicine Geriatric Medicine; ATTEND Internal Medicine
PROC: 02HV33Z Insertion of Infusion Device into Superior Vena Cava, Percutaneous Approach (ICD-10-PCS; principal; 2022-04-09)
PROC: B548ZZA Ultrasonography of Superior Vena Cava, Guidance (ICD-10-PCS; 2022-04-09)
PROC: 5A1D70Z Performance of Urinary Filtration, Intermittent, Less than 6 Hours Per Day (ICD-10-PCS; 2022-04-09)
PROC: 4A033R1 Measurement of Arterial Saturation, Peripheral, Percutaneous Approach (ICD-10-PCS; 2022-04-10)
DX: N17.9 Acute kidney failure, unspecified (principal); K85.20 Alcohol induced acute pancreatitis without necrosis or infection; E87.2 Acidosis; F17.200 Nicotine dependence, unspecified, uncomplicated; E87.5 Hyperkalemia; D72.829 Elevated white blood cell count, unspecified; F10.10 Alcohol abuse, uncomplicated; Y90.9 Presence of alcohol in blood, level not specified; E87.6 Hypokalemia; D64.9 Anemia, unspecified; F14.10 Cocaine abuse, uncomplicated
CPT/HCPCS: 36415; 36600; 71045; 74176; 76770; 80048; 80053; 80074; 80320; 81001; 81025; 82140; 82550; 82570; 82803; 83690; 83735; 83930; 84100; 84156; 84439; 84443; 84702; 85007; 85025; 87040; 96365; 96366; 96375; 99285; G0378; J3490; J7510; C9113; G0480; J1200; J1644; J2270; J2405; J2543; J2765; J3360; J3411; J3475; J7030; J7040; J7120